=== PATIENT | male | born 1980 | race Caucasian/White ===

== ENCOUNTER 2018-01-19 13:06 | Emergency (ER) | payer OTHER ==
[2018-01-19] MEDS ORDERED: SULFAMETHOXAZOLE-TRIMETHOPRIM DS 800-160 MG TAB PO ONE (13:45)
[2018-01-19] MEDS ORDERED: MUPI2OIN TOPICAL (13:57)
[2018-01-19] MEDS ORDERED: BACT800T5 PO (13:57)
[2018-01-19 13:58] VITALS: BP 146/75; PULSE 98; RESP 20; TEMP 98; O2SAT 100
--- NOTE | 2018-01-19 14:06 | PD ---
HPI Chief Complaint: Alcohol/Drug Intoxication Time Seen by Provider: 13:33 Travel History International Travel<30 days: No Contact w/Intl Traveler<30days: No Traveled to known affect area: No History of Present Illness HPI 37-year-old male that presents to the ED for evaluation of possible substance abuse. Patient was brought here by police under a Ash act. Patient apparently was running around appearing to be "high" on a local hotel and he was escorted out of the hotel secondary to this. Per patient he has no history of substance abuse. On my exam she denies any homicidal suicidal ideation. Per patient he has no medical or psychiatric illness. He takes no medications. He does tell me that he had an injury to his right great toe and his toenail finally came off. Per patient is up and about a week ago when a piece of steel fell onto his toes. Per patient he has a burn to his left arm secondary to his work. This is been ongoing for again a week. He states that he is up-to-date with his vaccinations. He denies any urinary or bowel movement issues. No chest pain or shortness of breath. Patient is here mainly for possible intoxication. On my examination the patient is very jitterish and appears to be hard to keep in one place. Likely under the influence of a stimulant. PFSH Social History Tobacco Use: No Allergies-Medications (Allergen,Severity, Reaction): Coded Allergies: No Known Allergies (Unverified , 01/19/18) Reported Meds & Prescriptions Reported Meds & Active Scripts Active Mupirocin Topical (Mupirocin) 2 % Oint 1 Applic TOPICAL BID Bactrim DS (Sulfamethoxazole-Trimethoprim) 800-160 Mg Tab 1 Tab PO BID 10 Days Review of Systems ROS Limitations: Intoxication Except as stated in HPI: all other systems reviewed are Neg Physical Exam Exam Limitations: Intoxication Narrative GENERAL: SKIN: Warm and dry. Patient has a healing burn on his left forearm about 3 cm. Some yellow crusting noted. HEAD: Atraumatic. Normocephalic. EYES: Pupils equal and round. No scleral icterus. No injection or drainage. ENT: No nasal bleeding or discharge. Mucous membranes pink and moist. Tongue is midline. No uvula deviation. NECK: Trachea midline. No JVD. CARDIOVASCULAR: Regular rate and rhythm. No murmurs, S3, S4. RESPIRATORY: No accessory muscle use. Clear to auscultation. Breath sounds equal bilaterally. GASTROINTESTINAL: Abdomen soft, non-tender, nondistended. Hepatic and splenic margins not palpable. MUSCULOSKELETAL: Extremities without clubbing, cyanosis, or edema. No obvious deformities. Full range of motion of the upper and lower extremities bilaterally. 2+ pulses bilaterally. Full range of motion of all toes. Patient does have a nail avulsion to the right great toe as well as a bruise to the right second toe nail. NEUROLOGICAL: Awake and alert. No obvious cranial nerve deficits. Motor grossly within normal limits. Five out of 5 muscle strength in the arms and legs. Normal speech. PSYCHIATRIC: Appropriate mood and affect; insight and judgment normal. Data Data Orders Orders Drug Screen, Random Urine (01/19/18 13:33) Sulfamet-Trimeth Ds 800-160 Mg (Bactrim (01/19/18 13:45) MDM Medical Decision Making Medical Screen Exam Complete: Yes Emergency Medical Condition: Yes Medical Record Reviewed: Yes Differential Diagnosis Substance abuse versus polysubstance abuse versus altered mental status versus normal exam versus burn versus nail avulsion Narrative Course 37-year-old male presents to the ED for evaluation of possible substance abuse. Patient was brought here for evaluation of this. Patient on exam appears to be answering questions appropriately but does appears to be under the stimuli of likely a stimulant medication. Patient denies any drug use no suicidal or homicidal. At this time I will do a drug screen and patient will be treated with Bactrim for his burn on his left forearm. Mupirocin cream given as well. Patient was given first dose here. Patient will be observed until his sober enough to make own decisions and he will be discharged. ED nurse was made aware of plan. Patient is medically cleared. Diagnosis Primary Impression: Substance abuse Patient Instructions: General Instructions Additional Instructions: Take medications as prescribed. Follow-up with PCP. See ED worsening symptoms. Med/Other Pt SpecificInfo: Prescription(s) given Scripts Mupirocin Topical (Mupirocin Topical) 2 % Oint 1 APPLIC TOPICAL BID for Mgmt Bacterial Infection, #1 TUBE 0 Refills Prov: Ashley Solorzano MD 01/19/18 Sulfamethoxazole-Trimethoprim (Bactrim DS) 800-160 Mg Tab 1 TAB PO BID for Infection for 10 Days, #20 TAB 0 Refills Prov: Ashley Solorzano MD 01/19/18 Disposition: 01 DISCHARGE HOME Condition: Hitesh Anderson Jan 19, 2018 14:06
[2018-01-19 15:16] LABS: AUTOMATED NEUTROPHIL # 15.2 TH/MM3 (1.8-7.7); BASOPHIL % 0.1 % (0.0-2.0); HEMATOCRIT 35.9 % (39.0-51.0); LYMPH % 10.3 % (9.0-44.0); LYMPHOCYTE # 1.9 TH/MM3 (1.0-4.8); MEAN CELL VOLUME 84.1 FL (80.0-100.0); MEAN CORPUSCULAR HEMOGLOBIN 28.2 PG (27.0-34.0); MEAN CORPUSCULAR HGB CONC 33.5 % (32.0-36.0); MEAN PLATELET VOLUME 8.3 FL (7.0-11.0); MONO % 9.2 % (0.0-8.0); MONOCYTE # 1.7 TH/MM3 (0-0.9); NEUT % 80.4 % (16.0-70.0); PLATELET COUNT 311 TH/MM3 (150-450); RED BLOOD COUNT 4.27 MIL/MM3 (4.50-5.90); RED CELL DISTRIBUTION WIDTH 13.8 % (11.6-17.2); WHITE BLOOD COUNT 18.9 TH/MM3 (4.0-11.0)
[2018-01-19 15:35] LABS: ALBUMIN 3.8 GM/DL (3.4-5.0); ALT (GPT) 113 U/L (12-78); AST (GOT) 226 U/L (15-37); BICARBONATE 24.1 MEQ/L (21.0-32.0); BLOOD UREA NITROGEN 30 MG/DL (7-18); CALCIUM 8.2 MG/DL (8.5-10.1); CHLORIDE 98 MEQ/L (98-107); CREATININE 1.24 MG/DL (0.60-1.30); GLOMERULAR FILTRATION RATE 66 ML/MIN (>89); GLUCOSE,RANDOM 108 MG/DL (74-106); SODIUM (NA) 132 MEQ/L (136-145)
[2018-01-19 15:38] LABS: ALKALINE PHOSPHATASE 65 U/L (45-117); TOTAL BILIRUBIN ADULT 0.9 MG/DL (0.2-1.0)
--- NOTE | 2018-01-19 16:09 | PD ---
Data Data Last Documented VS Vital Signs Date Time Temp Pulse Resp B/P (MAP) Pulse Ox O2 Delivery O2 Flow Rate FiO2 01/19/18 13:58 98.0 98 20 146/75 (98) 100 Orders Orders Drug Screen, Random Urine (01/19/18 13:33) Sulfamet-Trimeth Ds 800-160 Mg (Bactrim (01/19/18 13:45) Complete Blood Count With Diff (01/19/18 14:06) Comprehensive Metabolic Panel (01/19/18 14:06) Labs Laboratory Tests Test 01/19/18 14:30 White Blood Count 18.9 TH/MM3 Red Blood Count 4.27 MIL/MM3 Hemoglobin 12.0 GM/DL Hematocrit 35.9 % Mean Corpuscular Volume 84.1 FL Mean Corpuscular Hemoglobin 28.2 PG Mean Corpuscular Hemoglobin Concent 33.5 % Red Cell Distribution Width 13.8 % Platelet Count 311 TH/MM3 Mean Platelet Volume 8.3 FL Neutrophils (%) (Auto) 80.4 % Lymphocytes (%) (Auto) 10.3 % Monocytes (%) (Auto) 9.2 % Eosinophils (%) (Auto) 0.0 % Basophils (%) (Auto) 0.1 % Neutrophils # (Auto) 15.2 TH/MM3 Lymphocytes # (Auto) 1.9 TH/MM3 Monocytes # (Auto) 1.7 TH/MM3 Eosinophils # (Auto) 0.0 TH/MM3 Basophils # (Auto) 0.0 TH/MM3 CBC Comment DIFF FINAL Differential Comment Blood Urea Nitrogen 30 MG/DL Creatinine 1.24 MG/DL Random Glucose 108 MG/DL Total Protein 7.0 GM/DL Albumin 3.8 GM/DL Calcium Level 8.2 MG/DL Alkaline Phosphatase 65 U/L Aspartate Amino Transf (AST/SGOT) 226 U/L Alanine Aminotransferase (ALT/SGPT) 113 U/L Total Bilirubin 0.9 MG/DL Sodium Level 132 MEQ/L Potassium Level 4.1 MEQ/L Chloride Level 98 MEQ/L Carbon Dioxide Level 24.1 MEQ/L Anion Gap 10 MEQ/L Estimat Glomerular Filtration Rate 66 ML/MIN [facility] Medical Record Reviewed: Yes Supervised Visit with [facility]: No Narrative Course Please see previous providers notes. I was asked to follow-up on lab work. His WBC count is 18.9. His AST is 226 and his ALT is 113. 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 He moved out of his brother's house yesterday and moved into a hotel. He was planning on traveling to [place] today. His brother told the nurse that he has been using [facility]. The patient is currently somewhat restless but he is awake and alert answering questions appropriately. His leukocytosis may be stress reaction. He has a burn on his left arm and he was written prescriptions for mupirocin and Bactrim. He has no other clinical evidence of infectious process. The patient' s elevated liver enzymes are consistent with his history of hepatitis C. The patient will be discharged when family members arrive to give him a ride home. Diagnosis Primary Impression: Substance abuse Patient Instructions: General Instructions Additional Instruction: Take medications as prescribed. Follow-up with PCP. See ED worsening symptoms. Med/Other Pt SpecificInfo: Prescription(s) given Scripts Mupirocin Topical (Mupirocin Topical) 2 % Oint 1 APPLIC TOPICAL BID for Mgmt Bacterial Infection, #1 TUBE 0 Refills Prov: Ashley Solorzano MD 01/19/18 Sulfamethoxazole-Trimethoprim (Bactrim DS) 800-160 Mg Tab 1 TAB PO BID for Infection for 10 Days, #20 TAB 0 Refills Prov: Ashley Solorzano MD 01/19/18 Disposition: 01 DISCHARGE HOME Condition: Stable Nitesh Proctor Jan 19, 2018 16:09
[2018-01-19 17:13] VITALS: BP 132/74; PULSE 70; RESP 18; O2SAT 99
[2018-01-19 18:30] VITALS: BP 124/70; PULSE 68; RESP 18; O2SAT 100
== END 2018-01-19 19:03 | disposition home or self-care (01) ==
LOC: NEDAMB 13:06
DX: F19.10 Other psychoactive substance abuse, uncomplicated (principal); S90.121A Contusion of right lesser toe(s) without damage to nail, initial encounter; W22.8XXA Striking against or struck by other objects, initial encounter
CPT/HCPCS: 80053; 85025; 99283

== ENCOUNTER 2018-01-21 08:19 | Inpatient (IN) | payer OTHER ==
[~2018-01-21] VITALS: Ht 180.3 cm; Wt 73.0 kg
[~2018-01-21 08:19] MED LIST: BACT800T5 PO; MUPI2OIN TOPICAL
[2018-01-21 08:23] VITALS: BP 130/64; PULSE 83; RESP 18; TEMP 97.9; O2SAT 98
[2018-01-21] MEDS ORDERED: VANCOMYCIN INJ 1,000 MG in SODIUM CHLOR 0.9% 250 ML INJ 250 ML IV STA (08:40)
--- NOTE | 2018-01-21 08:43 | PD ---
HPI Chief Complaint: Skin Problem Time Seen by Provider: 08:40 Travel History International Travel<30 days: No Contact w/Intl Traveler<30days: No Traveled to known affect area: No History of Present Illness HPI 37-year-old male patient with history of IV drug use, MRSA, presents to the ER today because he states that he has had infections on his skin on the left arm, left side of the body, and several spots, even on spots he has not been shooting up on. He denies any fevers or any other issues. He states that they are all getting red and swollen. Modifying Factors: None Associated Signs & Symptoms: Skin infections on the arm, trunk, legs Risk Factors: MRSA, IV drug use PFSH Social History Alcohol Use: No Tobacco Use: No Substance Use: No Allergies-Medications (Allergen,Severity, Reaction): Coded Allergies: No Known Allergies (Unverified , 01/21/18) Reported Meds & Prescriptions Reported Meds & Active Scripts Active No Active Prescriptions or Reported Medications Review of Systems Except as stated in HPI: all other systems reviewed are Neg Physical Exam Narrative GENERAL: Well-developed young male patient currently in mild distress. Awake and oriented 3. SKIN: Focused skin assessment warm/dry. There is notable pustule on the left arm with intense surrounding erythema going up the forearm. Tender to palpation. There is also a pustule on the left trunk with surrounding erythema as well. I am not palpating obvious underlying fluctuance. HEAD: Atraumatic. Normocephalic. EYES: Pupils equal and round. No scleral icterus. No injection or drainage. ENT: No nasal bleeding or discharge. Mucous membranes pink and moist. NECK: Trachea midline. No JVD. CARDIOVASCULAR: Regular rate and rhythm. No murmur appreciated. RESPIRATORY: No accessory muscle use. Clear to auscultation. Breath sounds equal bilaterally. GASTROINTESTINAL: Abdomen soft, non-tender, nondistended. Hepatic and splenic margins not palpable. MUSCULOSKELETAL: No obvious deformities. No clubbing. No cyanosis. No edema. NEUROLOGICAL: Awake and alert. No obvious cranial nerve deficits. Motor grossly within normal limits. Normal speech. PSYCHIATRIC: Appropriate mood and affect; insight and judgment normal. Data Data Last Documented VS Vital Signs Date Time Temp Pulse Resp B/P (MAP) Pulse Ox O2 Delivery O2 Flow Rate FiO2 01/21/18 12:06 83 20 131/75 (93) 98 Room Air 01/21/18 08:23 97.9 Orders Orders Sepsis Workup Initiated (01/21/18 ) Complete Blood Count With Diff (01/21/18 08:40) Comprehensive Metabolic Panel (01/21/18 08:40) Lactic Acid Sepsis Protocol (01/21/18 08:40) Blood Culture (01/21/18 08:40) Chest, Single Ap (01/21/18 08:40) Blood Glucose (01/21/18 08:40) Ecg Monitoring (01/21/18 08:40) Iv Access Insert/Monitor (01/21/18 08:40) Oximetry (01/21/18 08:40) Oxygen Administration (01/21/18 08:40) Vancomycin Inj (Vancomycin Inj) (01/21/18 08:40) [facility] ([facility] (01/21/18 10:15) Consult Infectious Disease (01/21/18 ) Case Management Consult (01/21/18 ) Asp:No Reaction To [place]/Vanc (Asp Crit (01/21/18 10:15) Asp: Does Not Meet Inpt Admit (Asp Crit: (01/21/18 10:15) Dalbavancin Inj (Dalvance Inj) (01/21/18 10:12) (Hub Use Only)Inp Phy Cons/Ref (01/21/18 ) Labs Laboratory Tests Test 01/21/18 09:00 White Blood Count 8.4 TH/MM3 Red Blood Count 4.65 MIL/MM3 Hemoglobin 13.2 GM/DL Hematocrit 38.9 % Mean Corpuscular Volume 83.7 FL Mean Corpuscular Hemoglobin 28.3 PG Mean Corpuscular Hemoglobin Concent 33.8 % Red Cell Distribution Width 14.4 % Platelet Count 315 TH/MM3 Mean Platelet Volume 7.9 FL Neutrophils (%) (Auto) 73.7 % Lymphocytes (%) (Auto) 14.4 % Monocytes (%) (Auto) 11.0 % Eosinophils (%) (Auto) 0.5 % Basophils (%) (Auto) 0.4 % Neutrophils # (Auto) 6.2 TH/MM3 Lymphocytes # (Auto) 1.2 TH/MM3 Monocytes # (Auto) 0.9 TH/MM3 Eosinophils # (Auto) 0.0 TH/MM3 Basophils # (Auto) 0.0 TH/MM3 CBC Comment DIFF FINAL Differential Comment Blood Urea Nitrogen 5 MG/DL Creatinine 0.65 MG/DL Random Glucose 100 MG/DL Total Protein 6.9 GM/DL Albumin 3.2 GM/DL Calcium Level 8.6 MG/DL Alkaline Phosphatase 56 U/L Aspartate Amino Transf (AST/SGOT) 129 U/L Alanine Aminotransferase (ALT/SGPT) 94 U/L Total Bilirubin 0.7 MG/DL Sodium Level 138 MEQ/L Potassium Level 3.5 MEQ/L Chloride Level 104 MEQ/L Carbon Dioxide Level 28.9 MEQ/L Anion Gap 5 MEQ/L Estimat Glomerular Filtration Rate 139 ML/MIN Lactic Acid Level 1.1 mmol/L MDM Medical Decision Making Medical Screen Exam Complete: Yes Emergency Medical Condition: Yes Medical Record Reviewed: Yes Interpretation(s) Laboratory Tests Test 01/21/18 09:00 Hematocrit 38.9 % (39.0-51.0) Neutrophils (%) (Auto) 73.7 % (16.0-70.0) Monocytes (%) (Auto) 11.0 % (0.0-8.0) Blood Urea Nitrogen 5 MG/DL (7-18) Albumin 3.2 GM/DL (3.4-5.0) Aspartate Amino Transf (AST/SGOT) 129 U/L (15-37) Alanine Aminotransferase (ALT/SGPT) 94 U/L (12-78) Differential Diagnosis Skin infections: Cellulitis versus abscess versus sepsis versus endocarditis Narrative Course This appears to be mostly cellulitis, I do not see signs of obvious abscess at this time. IV antibiotics were given in the ER after cultures were drawn. At this point, I have discussed the case briefly with Dr. Diana of [place], but because bank had already been given and the fact that the patient states that he does not have the means to go back and forth for visits, he does not make a good candidate for [facility]. Case is discussed with Dr. Kyle Keyes for admission for IV antibiotics at this point and further follow-up planning will need to be done with case management. Diagnosis Primary Impression: Left arm cellulitis Admitting Information Admitting Physician Requests: Admit Scripts No Active Prescriptions or Reported Meds Cole Partida MD Jan 21, 2018 08:43
[2018-01-21 08:50] VITALS: O2SAT 100
--- NOTE | 2018-01-21 09:12 | RADRPT ---
EXAM DATE/TIME: 01/21/2018 08:48 [facility] COMPARISON: No previous studies available for comparison. INDICATIONS : Chest pain when breathing. Infection. MEDICAL HISTORY : MRSA. SURGICAL HISTORY : None. ENCOUNTER: Initial ACUITY: 1 day PAIN SCORE: 2/10 LOCATION: Bilateral chest FINDINGS: A single view of the chest demonstrates the lungs to be symmetrically aerated without evidence of mas s, infiltrate or effusion. The cardiomediastinal contours are unremarkable. Osseous structures are intact. CONCLUSION: No acute disease. Carlos Ventura MD on January 21, 2018 at 9:10 Board Certified Radiologist. This report was verified electronically.
[2018-01-21 09:20] LABS: AUTOMATED NEUTROPHIL # 6.2 TH/MM3 (1.8-7.7); BASOPHIL % 0.4 % (0.0-2.0); EOSINOPHIL % 0.5 % (0.0-4.0); HEMATOCRIT 38.9 % (39.0-51.0); HEMOGLOBIN 13.2 GM/DL (13.0-17.0); LYMPH % 14.4 % (9.0-44.0); LYMPHOCYTE # 1.2 TH/MM3 (1.0-4.8); MEAN CELL VOLUME 83.7 FL (80.0-100.0); MEAN CORPUSCULAR HEMOGLOBIN 28.3 PG (27.0-34.0); MEAN CORPUSCULAR HGB CONC 33.8 % (32.0-36.0); MEAN PLATELET VOLUME 7.9 FL (7.0-11.0); MONOCYTE # 0.9 TH/MM3 (0-0.9); NEUT % 73.7 % (16.0-70.0); PLATELET COUNT 315 TH/MM3 (150-450); RED BLOOD COUNT 4.65 MIL/MM3 (4.50-5.90); RED CELL DISTRIBUTION WIDTH 14.4 % (11.6-17.2); WHITE BLOOD COUNT 8.4 TH/MM3 (4.0-11.0)
[2018-01-21 10:03] LABS: ALBUMIN 3.2 GM/DL (3.4-5.0); ALKALINE PHOSPHATASE 56 U/L (45-117); ALT (GPT) 94 U/L (12-78); AST (GOT) 129 U/L (15-37); BICARBONATE 28.9 MEQ/L (21.0-32.0); BLOOD UREA NITROGEN 5 MG/DL (7-18); CALCIUM 8.6 MG/DL (8.5-10.1); CHLORIDE 104 MEQ/L (98-107); CREATININE 0.65 MG/DL (0.60-1.30); GLOMERULAR FILTRATION RATE 139 ML/MIN (>89); GLUCOSE,RANDOM 100 MG/DL (74-106); SODIUM (NA) 138 MEQ/L (136-145); TOTAL BILIRUBIN ADULT 0.7 MG/DL (0.2-1.0); TOTAL PROTEIN 6.9 GM/DL (6.4-8.2)
[2018-01-21] MEDS ORDERED: DALBAVANCIN INJ 1,500 MG in DEXTROSE 5% IN WATE 500 ML INJ 500 ML IV STA ×2 (10:12)
[2018-01-21] MEDS ORDERED: MISCELLANEOUS PHARMACY INFORMATION XX ONE (10:15)
[2018-01-21] MEDS ORDERED: ASP: Does not meet inpatient admission criteria OTHER ONE (10:15)
[2018-01-21] MEDS ORDERED: ASP: No known hypersensitivity to Vanco, Telavancin, Dalbavancin OTHER ONE (10:15)
[2018-01-21 12:06] VITALS: BP 131/75; PULSE 83; RESP 20; O2SAT 98
[2018-01-21] MEDS ORDERED: BISACODYL 10 MG SUPP RECTAL PRN (13:00)
[2018-01-21] MEDS ORDERED: SENNOSIDES 8.6 MG TAB PO PRN (13:00)
[2018-01-21] MEDS ORDERED: ONDANSETRON HCL 4 MG/2 ML VIAL IVP PRN (13:00)
[2018-01-21] MEDS ORDERED: SODIUM CHLORIDE 0.9% FLUSH 10 ML FLUSH IV FLUSH PRN (13:00)
[2018-01-21] MEDS ORDERED: MAGNESIUM HYDROXIDE SUSP 30 ML CUP PO PRN (13:00)
[2018-01-21] MEDS ORDERED: NALOXONE HCL 0.4 MG/ML AMP IV PUSH PRN (13:00)
[2018-01-21] MEDS ORDERED: ACETAMINOPHEN 325 MG TAB PO PRN (13:00)
[2018-01-21] MEDS ORDERED: LACTULOSE SYRUP 20 GM/30 ML CUP PO PRN (13:00)
--- NOTE | 2018-01-21 13:22 | PD.PN.STU ---
Subjective Remarks The patient is a 37 y/o male with a hx of MRSA skin infection and IVDU who presents complaining of a rash. He said that 4 days ago he noticed a red spot on his arm and over the past 4 days more have popped up and they have started to hurt a lot. He says that the spots are causing severe pain and they seem to be increasing in number to him. He says there are no aggravating or alleviating factors and he has never had anything like this before. The pustules he has have not drained to his knowledge. He has not been around anyone with a similar problem that he knows of. He last used IV meth 4 days ago in a hotel room and has spent no time out in the [place]. He says that he has body aches and chills that started about 3 days ago. He notes some SOB and chest tightness that started yesterday and he attributes to feeling very anxious. He denies fevers, diarrhea, constipation, abdominal pain, vision changes, or palpitations. PMH- IV substance abuse Social Hx: IV meth for 5 years, last use was 4 days ago. Smoke 1/2 pack of cigarettes a day. Denies alcohol use. Home medications: none Surgical hx: none Objective Vitals Vital Signs Date Time Temp Pulse Resp B/P (MAP) Pulse Ox O2 Delivery O2 Flow Rate FiO2 01/21/18 12:06 83 20 131/75 (93) 98 Room Air 01/21/18 08:50 100 Room Air 01/21/18 08:50 100 Room Air 01/21/18 08:44 20 01/21/18 08:23 97.9 83 18 130/64 (86) 98 Result Diagram: 01/21/18 0900 01/21/18 0900 Other Results Laboratory Tests Test 01/21/18 09:00 White Blood Count 8.4 TH/MM3 Red Blood Count 4.65 MIL/MM3 Hemoglobin 13.2 GM/DL Hematocrit 38.9 % Mean Corpuscular Volume 83.7 FL Mean Corpuscular Hemoglobin 28.3 PG Mean Corpuscular Hemoglobin Concent 33.8 % Red Cell Distribution Width 14.4 % Platelet Count 315 TH/MM3 Mean Platelet Volume 7.9 FL Neutrophils (%) (Auto) 73.7 % Lymphocytes (%) (Auto) 14.4 % Monocytes (%) (Auto) 11.0 % Eosinophils (%) (Auto) 0.5 % Basophils (%) (Auto) 0.4 % Neutrophils # (Auto) 6.2 TH/MM3 Lymphocytes # (Auto) 1.2 TH/MM3 Monocytes # (Auto) 0.9 TH/MM3 Eosinophils # (Auto) 0.0 TH/MM3 Basophils # (Auto) 0.0 TH/MM3 CBC Comment DIFF FINAL Differential Comment Blood Urea Nitrogen 5 MG/DL Creatinine 0.65 MG/DL Random Glucose 100 MG/DL Total Protein 6.9 GM/DL Albumin 3.2 GM/DL Calcium Level 8.6 MG/DL Alkaline Phosphatase 56 U/L Aspartate Amino Transf (AST/SGOT) 129 U/L Alanine Aminotransferase (ALT/SGPT) 94 U/L Total Bilirubin 0.7 MG/DL Sodium Level 138 MEQ/L Potassium Level 3.5 MEQ/L Chloride Level 104 MEQ/L Carbon Dioxide Level 28.9 MEQ/L Anion Gap 5 MEQ/L Estimat Glomerular Filtration Rate 139 ML/MIN Lactic Acid Level 1.1 mmol/L Imaging Last Impressions Chest X-Ray 01/21/18 0840 Signed Impressions: Service Date/Time: Sunday, January 21, 2018 08:48 - CONCLUSION: No acute disease. Carlos Ventura MD Objective Remarks GENERAL: Well-nourished, well-developed patient who appears very anxious in the bed. SKIN: Warm and dry. Multiple pustules on his left arm, left thigh, left leg, and right leg. All of them have surrounding erythema and some have a white center and some have a necrotic center. Appears diaphoretic. EYES: No scleral icterus. No injection or drainage. CARDIOVASCULAR: Regular rate and rhythm with a 2/6 systolic murmur heard in the left 5th intercostal space. RESPIRATORY: Breath sounds equal bilaterally. No accessory muscle use. GASTROINTESTINAL: Abdomen soft, non-tender, nondistended. EXTREMITIES: No cyanosis, or edema. Left inguinal lymphadenopathy. NEUROLOGICAL: Awake, alert, and oriented x 3. Non-focal. Medications and IVs Current Medications Medications (Trade) Dose Ordered Sig/Marielos Route PRN Reason Start Time Stop Time Status Last Admin Dose Admin Sodium Chloride (NS Flush) 2 ml UNSCH PRN IV FLUSH FLUSH AFTER USING IV ACCESS 01/21/18 13:00 UNV Sodium Chloride (NS Flush) 2 ml BID IV FLUSH 01/21/18 21:00 UNV Acetaminophen (Tylenol) 650 mg Q4H PRN PO TEMP > 100.4 01/21/18 13:00 UNV Ondansetron HCl (Zofran Inj) 4 mg Q6H PRN IVP NAUSEA OR VOMITING 01/21/18 13:00 UNV Heparin Sodium (Porcine) (Heparin Inj) 5,000 units Q12H SQ 01/21/18 13:00 UNV Naloxone HCl (Narcan Inj) 0.4 mg UNSCH PRN IV PUSH SEE LABEL COMMENTS 01/21/18 13:00 UNV Magnesium Hydroxide (Milk Of Magnesia Liq) 30 ml Q12H PRN PO Mild constipation 01/21/18 13:00 UNV Sennosides (Senokot) 17.2 mg Q12H PRN PO Moderate constipation 01/21/18 13:00 UNV Bisacodyl (Dulcolax Supp) 10 mg DAILY PRN RECTAL SEVERE CONSITIPATION 01/21/18 13:00 UNV Lactulose (Lactulose Liq) 30 ml DAILY PRN PO SEVERE CONSITIPATION 01/21/18 13:00 UNV A/P Assessment and Plan This is a 37 y/o male with a hx of IV drug abuse presenting with a rash for 4 days that has been progressively getting worse. It started as a single pustule but now he has multiple on his left extremities along with lymphadenopathy and a mitral regurg murmur. He has a hx of MRSA skin infection so this is likely to also be MRSA. He was afebrile on arrival, has no leukocytosis, and normal chest x-ray. His SOB and chest tightness is likely secondary to his anxiety as he appears very restless and anxious in the room. If blood cultures are positive we should get an Echo to evaluate of BE. Labs also show transaminitis. 1. Skin Infection -patient has some type of cellulitis process and a hx of MRSA -Consult ID - appreciate the recommendations -Patient given 1g Vancomycin IV to cover MRSA -Tylenol PRN for fever -blood culture drawn prior to antibiotics and are pending -lactate was normal- 1.1 -Get 2D echo if blood cultures are positive 2.Elevated AST and ALT -Trend CMP - order hepatitis screening 3. Prophylaxis -5000units of heparin subcutaneous Q 12 hours -Senokot, Dulcolax, and lactulose for bowel regimen Efrain Almaraz M3 Jan 21, 2018 13:22
[2018-01-21 14:34] VITALS: BP 130/76; PULSE 84; RESP 16; TEMP 99.1; O2SAT 99
--- NOTE | 2018-01-21 15:31 | HHI.HP ---
[facility] Service [facility] Primary Care Physician No Primary Care Physician Admission Diagnosis IV drug use/cellulitis/MRSA Diagnoses: Travel History International Travel<30 Days: No Contact w/Intl Traveler <30 Da: No Traveled to Known Affected Are: No Past Family Social History Allergies: Coded Allergies: No Known Allergies (Unverified , 01/21/18) Physical Exam Vital Signs Vital Signs Date Time Temp Pulse Resp B/P (MAP) Pulse Ox O2 Delivery O2 Flow Rate FiO2 01/21/18 14:34 99.1 84 16 130/76 (94) 99 01/21/18 14:32 01/21/18 12:06 83 20 131/75 (93) 98 Room Air 01/21/18 08:50 100 Room Air 01/21/18 08:50 100 Room Air 01/21/18 08:44 20 01/21/18 08:23 97.9 83 18 130/64 (86) 98 Physical Exam GENERAL: This is a well-nourished, well-developed patient, in no apparent distress. SKIN: No rashes, ecchymoses or lesions. Cool and dry. HEAD: Atraumatic. Normocephalic. No temporal or scalp tenderness. EYES: Pupils equal round and reactive. Extraocular motions intact. No scleral icterus. No injection or drainage. ENT: Nose without bleeding, purulent drainage or septal hematoma. Throat without erythema, tonsillar hypertrophy or exudate. Uvula midline. Airway patent. NECK: Trachea midline. No JVD or lymphadenopathy. Supple, nontender, no meningeal signs. CARDIOVASCULAR: Regular rate and rhythm without murmurs, gallops, or rubs. RESPIRATORY: Clear to auscultation. Breath sounds equal bilaterally. No wheezes , rales, or rhonchi. GASTROINTESTINAL: Abdomen soft, non-tender, nondistended. No hepato-splenomegaly , or palpable masses. No guarding. MUSCULOSKELETAL: Extremities without clubbing, cyanosis, or edema. No joint tenderness, effusion, or edema noted. No calf tenderness. Negative Homans sign bilaterally. NEUROLOGICAL: Awake and alert. Cranial nerves II through XII intact. Motor and sensory grossly within normal limits. Five out of 5 muscle strength in all muscle groups. Normal speech. Laboratory Laboratory Tests Test 01/21/18 09:00 White Blood Count 8.4 Red Blood Count 4.65 Hemoglobin 13.2 Hematocrit 38.9 Mean Corpuscular Volume 83.7 Mean Corpuscular Hemoglobin 28.3 Mean Corpuscular Hemoglobin Concent 33.8 Red Cell Distribution Width 14.4 Platelet Count 315 Mean Platelet Volume 7.9 Neutrophils (%) (Auto) 73.7 Lymphocytes (%) (Auto) 14.4 Monocytes (%) (Auto) 11.0 Eosinophils (%) (Auto) 0.5 Basophils (%) (Auto) 0.4 Neutrophils # (Auto) 6.2 Lymphocytes # (Auto) 1.2 Monocytes # (Auto) 0.9 Eosinophils # (Auto) 0.0 Basophils # (Auto) 0.0 CBC Comment DIFF FINAL Differential Comment Blood Urea Nitrogen 5 Creatinine 0.65 Random Glucose 100 Total Protein 6.9 Albumin 3.2 Calcium Level 8.6 Alkaline Phosphatase 56 Aspartate Amino Transf (AST/SGOT) 129 Alanine Aminotransferase (ALT/SGPT) 94 Total Bilirubin 0.7 Sodium Level 138 Potassium Level 3.5 Chloride Level 104 Carbon Dioxide Level 28.9 Anion Gap 5 Estimat Glomerular Filtration Rate 139 Lactic Acid Level 1.1 Date/Time Source Procedure Growth Status 01/21/18 09:05 Blood Peripheral Aerobic Blood Culture Pending Received 01/21/18 09:05 Blood Peripheral Anaerobic Blood Culture Pending Received Result Diagram: 01/21/18 0900 01/21/18 09 Caprini VTE Risk Assessment Caprini Risk Assessment Model Point Value = 1 Point Value = 2 Point Value = 3 Point Value = 5 Age 41-60 Minor surgery BMI > 25 kg/m2 Swollen legs Varicose veins or History of unexplained or recurrent spontaneous Oral contraceptives or hormone replacement Sepsis (< 1 month) Serious lung disease, including pneumonia (< 1 month) Abnormal pulmonary function Acute myocardial infarction Congestive heart failure (< 1 month) History of inflammatory bowel disease Medical patient at bed rest Age 61-74 Arthroscopic surgery Major open surgery (> 45 min) Laparoscopic surgery (> 45 min) Malignancy Confined to bed (> 72 hours) Immobilizing plaster cast Central venous access Age >= 75 History of VTE Family history of VTE Factor V Leiden Prothrombin [id number] Lupus anticoagulant Anticardiolipin antibodies Elevated serum homocysteine Heparin-induced thrombocytopenia Other congenital or acquired thrombophilia Stroke (< 1 month) Elective arthroplasty Hip, pelvis, or leg fracture Acute spinal cord injury (< 1 month) Prophylaxis Regimen Total Risk Factor Score Risk Level Prophylaxis Regimen 0-1 Low Early ambulation 2 Moderate Order ONE of the following: *Sequential Compression Device (SCD) *Heparin 5000 units SQ BID 3-4 Higher Order ONE of the following medications: *Heparin 5000 units SQ TID *Enoxaparin/Lovenox 40 mg SQ daily (WT < 150 kg, CrCl > 30 mL/min) *Enoxaparin/Lovenox 30 mg SQ daily (WT < 150 kg, CrCl > 10-29 mL/min) *Enoxaparin/Lovenox 30 mg SQ BID (WT < 150 kg, CrCl > 30 mL/min) AND/OR *Sequential Compression Device (SCD) 5 or more Highest Order ONE of the following medications: *Heparin 5000 units SQ TID (Preferred with Epidurals) *Enoxaparin/Lovenox 40 mg SQ daily (WT < 150 kg, CrCl > 30 mL/min) *Enoxaparin/Lovenox 30 mg SQ daily (WT < 150 kg, CrCl > 10-29 mL/min) *Enoxaparin/Lovenox 30 mg SQ BID (WT < 150 kg, CrCl > 30 mL/min) AND *Sequential Compression Device (SCD) Radha Domingo MD Jan 21, 2018 15:31
--- NOTE | 2018-01-21 15:34 | HHI.HP ---
HPI Service [facility] Primary Care Physician No Primary Care Physician Admission Diagnosis IV drug use/cellulitis/MRSA Diagnoses: Chief Complaint: Multiple skin infections. IVDU Travel History International Travel<30 Days: No Contact w/Intl Traveler <30 Da: No Traveled to Known Affected Are: No History of Present Illness 37 Y/O male with with history of IVDU, multiple MRSA skin infection presented to the emergency room with multiple skin infections that started about 5 days ago. The patient was seen in the emergency room a couple of days ago and was prescribed antibiotics. He is a current Methamphetamine user. He notes the lesions involve his arm and legs. Has been getting worse over the past couple of days. Become pustules and enlarging in size. He denies fevers. He reports feeling very anxious currently Review of Systems Constitutional: DENIES: Fever Integumentary: COMPLAINS OF: Rash Psychiatric: COMPLAINS OF: Anxiety Except as stated in HPI: all other systems reviewed are Neg Past Family Social History Past Medical History Tobacco abuse Methamphetamines dependence, IVDU Past Surgical History None Reported Medications Reported Meds & Active Scripts Active No Active Prescriptions or Reported Medications Allergies: Coded Allergies: No Known Allergies (Unverified , 01/21/18) Family History Reviewed and is noncontributory Social History + for tobacco abuse and IVDU Physical Exam Vital Signs Vital Signs Date Time Temp Pulse Resp B/P (MAP) Pulse Ox O2 Delivery O2 Flow Rate FiO2 01/21/18 14:34 99.1 84 16 130/76 (94) 99 01/21/18 14:32 01/21/18 12:06 83 20 131/75 (93) 98 Room Air 01/21/18 08:50 100 Room Air 01/21/18 08:50 100 Room Air 01/21/18 08:44 20 01/21/18 08:23 97.9 83 18 130/64 (86) 98 Physical Exam GENERAL: This is a well-nourished, well-developed patient, in no apparent distress. SKIN: Multiple small abscess involving the leg of varying sizes. He also has a few similar lesion on the left forearm. Left inguinal abscess/lymphadenopathy. All very tender to palpation. HEAD: Atraumatic. Normocephalic. No temporal or scalp tenderness. EYES: Pupils equal round and reactive. Extraocular motions intact. No scleral icterus. No injection or drainage. ENT: Nose without bleeding, purulent drainage or septal hematoma. Throat without erythema, tonsillar hypertrophy or exudate. Uvula midline. Airway patent. NECK: Trachea midline. No JVD or lymphadenopathy. Supple, nontender, no meningeal signs. CARDIOVASCULAR: Normal rate and regular rhythm. 2/6 PIPPA murmur RESPIRATORY: Clear to auscultation. Breath sounds equal bilaterally. No wheezes , rales, or rhonchi. GASTROINTESTINAL: Abdomen soft, non-tender, nondistended. No hepato-splenomegaly , or palpable masses. No guarding. MUSCULOSKELETAL: Extremities without cyanosis, or edema. NEUROLOGICAL: Awake and alert. Cranial nerves II through XII intact. Motor and sensory grossly within normal limits. Five out of 5 muscle strength in all muscle groups. Normal speech. Laboratory Laboratory Tests Test 01/21/18 09:00 White Blood Count 8.4 Red Blood Count 4.65 Hemoglobin 13.2 Hematocrit 38.9 Mean Corpuscular Volume 83.7 Mean Corpuscular Hemoglobin 28.3 Mean Corpuscular Hemoglobin Concent 33.8 Red Cell Distribution Width 14.4 Platelet Count 315 Mean Platelet Volume 7.9 Neutrophils (%) (Auto) 73.7 Lymphocytes (%) (Auto) 14.4 Monocytes (%) (Auto) 11.0 Eosinophils (%) (Auto) 0.5 Basophils (%) (Auto) 0.4 Neutrophils # (Auto) 6.2 Lymphocytes # (Auto) 1.2 Monocytes # (Auto) 0.9 Eosinophils # (Auto) 0.0 Basophils # (Auto) 0.0 CBC Comment DIFF FINAL Differential Comment Blood Urea Nitrogen 5 Creatinine 0.65 Random Glucose 100 Total Protein 6.9 Albumin 3.2 Calcium Level 8.6 Alkaline Phosphatase 56 Aspartate Amino Transf (AST/SGOT) 129 Alanine Aminotransferase (ALT/SGPT) 94 Total Bilirubin 0.7 Sodium Level 138 Potassium Level 3.5 Chloride Level 104 Carbon Dioxide Level 28.9 Anion Gap 5 Estimat Glomerular Filtration Rate 139 Lactic Acid Level 1.1 Date/Time Source Procedure Growth Status 01/21/18 09:05 Blood Peripheral Aerobic Blood Culture Pending Received 01/21/18 09:05 Blood Peripheral Anaerobic Blood Culture Pending Received Result Diagram: 01/21/1889901/21/18 0900 Imaging Last Impressions Chest X-Ray 01/21/18 0840 Signed Impressions: Service Date/Time: Sunday, January 21, 2018 08:48 - CONCLUSION: No acute disease. MD Zhanna Villafana VTE Risk Assessment Zhanna VTE Risk Assessment: No/Low Risk (score <= 1) Shaunrini Risk Assessment Model Point Value = 1 Point Value = 2 Point Value = 3 Point Value = 5 Age 41-60 Minor surgery BMI > 25 kg/m2 Swollen legs Varicose veins or History of unexplained or recurrent spontaneous Oral contraceptives or hormone replacement Sepsis (< 1 month) Serious lung disease, including pneumonia (< 1 month) Abnormal pulmonary function Acute myocardial infarction Congestive heart failure (< 1 month) History of inflammatory bowel disease Medical patient at bed rest Age 61-74 Arthroscopic surgery Major open surgery (> 45 min) Laparoscopic surgery (> 45 min) Malignancy Confined to bed (> 72 hours) Immobilizing plaster cast Central venous access Age >= 75 History of VTE Family history of VTE Factor V Leiden Prothrombin [id number] Lupus anticoagulant Anticardiolipin antibodies Elevated serum homocysteine Heparin-induced thrombocytopenia Other congenital or acquired thrombophilia Stroke (< 1 month) Elective arthroplasty Hip, pelvis, or leg fracture Acute spinal cord injury (< 1 month) Prophylaxis Regimen Total Risk Factor Score Risk Level Prophylaxis Regimen 0-1 Low Early ambulation 2 Moderate Order ONE of the following: *Sequential Compression Device (SCD) *Heparin 5000 units SQ BID 3-4 Higher Order ONE of the following medications: *Heparin 5000 units SQ TID *Enoxaparin/Lovenox 40 mg SQ daily (WT < 150 kg, CrCl > 30 mL/min) *Enoxaparin/Lovenox 30 mg SQ daily (WT < 150 kg, CrCl > 10-29 mL/min) *Enoxaparin/Lovenox 30 mg SQ BID (WT < 150 kg, CrCl > 30 mL/min) AND/OR *Sequential Compression Device (SCD) 5 or more Highest Order ONE of the following medications: *Heparin 5000 units SQ TID (Preferred with Epidurals) *Enoxaparin/Lovenox 40 mg SQ daily (WT < 150 kg, CrCl > 30 mL/min) *Enoxaparin/Lovenox 30 mg SQ daily (WT < 150 kg, CrCl > 10-29 mL/min) *Enoxaparin/Lovenox 30 mg SQ BID (WT < 150 kg, CrCl > 30 mL/min) AND *Sequential Compression Device (SCD) Assessment and Plan Assessment and Plan 37 Y/O male IVDU admitted with Extensive cellulitis and pustules/small abscess involving arm, legs, groin: - Start Vanc and Rocephin. - Consult ID - Blood cultures pending. Anxiety/Early withdrawal: - Ativan PRN. Elevated LFTs: - Check hepatitis panel. Discussed Condition With Dr. Rodarte Physician Certification 2 Midnight Certification Type: Admission for Inpatient Services Order for Inpatient Services The services are ordered in accordance with Medicare regulations or non- Medicare payer requirements, as applicable. In the case of services not specified as inpatient-only, they are appropriately provided as inpatient services in accordance with the 2-midnight benchmark. Estimated LOS (days): 3 days is the estimated time the patient will need to remain in the hospital, assuming treatment plan goals are met and no additional complications. Post-Hospital Plan: Home Radha Domingo MD Jan 21, 2018 15:34
[2018-01-21] MEDS ORDERED: Vancomycin Consult Pharmacy 1 EA OTHER SCH (15:45)
[2018-01-21] MEDS: LORazepam 1 MG TAB PO PRN ×2 (16:02→21:56)
[2018-01-21] MEDS: HEPARIN SODIUM - SQ 10,000 UNITS/ML VIAL SQ SCH (16:06)
[2018-01-21] MEDS ORDERED: cefTRIAXone INJ 1,000 MG in SODIUM CHLORIDE 0.9% INJ 100 ML IV SCH (17:00)
--- NOTE | 2018-01-21 17:09 | PD.ID.CON ---
History of Present Illness Consult Requested By Primary Care Physician No Primary Care Physician Diagnoses: History of Present Illness 37 M with active IVDU presented witmultiple tender skin lesions with most prominent on the L abdome, L groin area and L forearm No fevers No leukocytosis H/o MRSA Review of Systems Except as stated in HPI: all other systems reviewed are Neg Past Family Social History Allergies: Coded Allergies: No Known Allergies (Unverified , 01/21/18) Past Medical History HCV IVDU Active Ordered Medications Medications where reviewed in EMR Antibiotics Include: vanco CFTX Physical Exam Vital Signs Vital Signs Date Time Temp Pulse Resp B/P (MAP) Pulse Ox O2 Delivery O2 Flow Rate FiO2 01/21/18 14:34 99.1 84 16 130/76 (94) 99 01/21/18 14:32 01/21/18 12:06 83 20 131/75 (93) 98 Room Air 01/21/18 08:50 100 Room Air 01/21/18 08:50 100 Room Air 01/21/18 08:44 20 01/21/18 08:23 97.9 83 18 130/64 (86) 98 Physical Exam CONSTITUTIONAL/GENERAL: This is an adequately nourished patient, in no apparent distress. TUBES/LINES/DRAINS: SKIN: multiple skin abscesses, abdominal wall, L forearm, L thigh i different stages Some fluctuant very tender biggest one around 2.5 cm on the L forearm, also on abdominal wall and L thigh HEAD: Atraumatic. Normocephalic. EYES: Pupils equal and round and reactive. Extraocular motions intact. No scleral icterus. No injection or drainage. Fundi not examined. ENT: Hearing grossly normal. Nose without bleeding or purulent drainage. Throat without visible erythema, exudates, masses, or lesions. NECK: Trachea midline. Supple, nontender. No palpable thyroid enlargement or nodularity. CARDIOVASCULAR: Regular rate and rhythm without murmurs, gallops, or rubs. No JVD. Peripheral pulses symmetric. RESPIRATORY/CHEST: Symmetric, unlabored respirations. Clear to auscultation. Breath sounds equal bilaterally. No wheezes, rales, or rhonchi. GASTROINTESTINAL: Abdomen soft, non-tender, nondistended. No hepato-splenomegaly , or palpable masses. No guarding. Bowel sounds present. GENITOURINARY: Without palpable bladder distension. Perrin catheter in place. MUSCULOSKELETAL: Extremities without clubbing, cyanosis, or edema. No joint tenderness or effusion noted. No calf tenderness. No mottling or clubbing. LYMPHATICS: No palpable cervical or supraclavicular adenopathy. NEUROLOGICAL: Awake and alert. Motor and sensory grossly within normal limits. Follows commands. Cognitively sharp. Moves all extremities. PSYCHIATRIC: No obvious anxiety/depression. no apparent hallucinations or other psychotic thought process. Laboratory Laboratory Tests Test 01/21/18 09:00 White Blood Count 8.4 Red Blood Count 4.65 Hemoglobin 13.2 Hematocrit 38.9 Mean Corpuscular Volume 83.7 Mean Corpuscular Hemoglobin 28.3 Mean Corpuscular Hemoglobin Concent 33.8 Red Cell Distribution Width 14.4 Platelet Count 315 Mean Platelet Volume 7.9 Neutrophils (%) (Auto) 73.7 Lymphocytes (%) (Auto) 14.4 Monocytes (%) (Auto) 11.0 Eosinophils (%) (Auto) 0.5 Basophils (%) (Auto) 0.4 Neutrophils # (Auto) 6.2 Lymphocytes # (Auto) 1.2 Monocytes # (Auto) 0.9 Eosinophils # (Auto) 0.0 Basophils # (Auto) 0.0 CBC Comment DIFF FINAL Differential Comment Blood Urea Nitrogen 5 Creatinine 0.65 Random Glucose 100 Total Protein 6.9 Albumin 3.2 Calcium Level 8.6 Alkaline Phosphatase 56 Aspartate Amino Transf (AST/SGOT) 129 Alanine Aminotransferase (ALT/SGPT) 94 Total Bilirubin 0.7 Sodium Level 138 Potassium Level 3.5 Chloride Level 104 Carbon Dioxide Level 28.9 Anion Gap 5 Estimat Glomerular Filtration Rate 139 Lactic Acid Level 1.1 Date/Time Source Procedure Growth Status 01/21/18 09:05 Blood Peripheral Aerobic Blood Culture Pending Received 01/21/18 09:05 Blood Peripheral Anaerobic Blood Culture Pending Received Result Diagram: 01/21/18 0900 01/21/18 09 Assessment and Plan Assessment and Plan A: mulriple skin abscesses Plan: will ask gen surg to see the pt for I+D vancomycin Irene Reyna MD Jan 21, 2018 17:09
--- NOTE | 2018-01-21 17:15 | HHI.PR ---
Addendum to Inpatient Note Additional Information seen around 4 pm- full note to follow IVDU M co multiple skin abscesses, abdominal wall, L forearm, L thigh very tender + subjective fever T max 99.1 WBC wnl On exam: multiple small skin abscesses with the biggest one around 2.5 cm on the L forearm, also on abdominal wall and L thigh O/w unremakable exam Plan: will ask gen surg to see the pt for I+D vancomycin Irene Diana MD Jan 21, 2018 17:15
[2018-01-21 18:18] LABS: ALBUMIN 3.3 GM/DL (3.4-5.0); DIRECT BILIRUBIN ADULT 0.2 MG/DL (0.0-0.2)
[2018-01-21 18:20] LABS: INDIRECT BILIRUBIN 0.5 MG/DL (0.0-0.8); TOTAL BILIRUBIN ADULT 0.7 MG/DL (0.2-1.0)
--- NOTE | 2018-01-21 19:28 | MB ---
cc: Efrain Leong MD DATE: 01/21/2018 REASON FOR CONSULTATION: Multiple subcutaneous abscesses with history of IV drug abuse. HISTORY OF PRESENT ILLNESS: Mr. Montana is a 37-year-old male who comes into the Emergency department today complaining of multiple abscesses. He has a history of IV drug abuse and hepatitis and MRSA. He states he had several areas on his left arm and left hip that developed these subcutaneous abscesses. He states that the ones on his left hip are spontaneous and not associated with IV drug abuse as he mainly injects his arms. He was seen and evaluated in the emergency department. He was admitted for IV antibiotics. Surgical consultation was requested for the abscesses because apparently no one in the ER knew how to drain them. PAST MEDICAL HISTORY: IV drug abuse, MRSA, hepatitis C. PAST SURGICAL HISTORY: Includes previous I and D's. MEDICATIONS: No prescribed medications except for occasionally antibiotics for these abscesses. ALLERGIES: HE HAS NO KNOWN DRUG ALLERGIES. SOCIAL HISTORY: He smokes, drinks and uses IV drugs. He goes in and out of the area. He has been to the emergency department several times for this. REVIEW OF SYSTEMS: The patient reports fever and chills. He reports multiple left-sided abscesses. He denies any nausea or vomiting. He denies any change in bladder or bowel habits. PHYSICAL EXAMINATION: VITAL SIGNS: Temperature 98, pulse 70, blood pressure 130/70, respiratory rate 20. GENERAL: This is a middle-aged, healthy-appearing male, eating his dinner. HEENT: Pupils equal, round and reactive to light. Sclerae are white. Oropharynx is clear and moist. NECK: Supple. No masses. LUNGS: Clear to auscultation bilaterally. HEART: S1, S2. No murmur. ABDOMEN: Soft, nontender. EXTREMITIES: He has 2 abscesses on his left groin in the inguinal region. There is some fluctuance. He also has a healing abscess on his left anterior thigh and on his left lower leg. No adenopathy is noted. On the left forearm, he has 2 small abscesses on the extensor surface. These appear to be superficial. Patient has good range of motion in the left upper extremity. No adenopathy noted in the left axilla. LABORATORY DATA: White blood cell count 8, hemoglobin 13, and platelet count of 315. Electrolytes are all within normal limits. IMPRESSION: Multiple subcutaneous abscesses with history of methicillin-resistant Staphylococcus aureus and intravenous drug abuse. PLAN: I advised the patient he needed to go the operating room for formal I and D. Unfortunately, the patient is currently being fed dinner, so this will not happen this evening. We will schedule it for tomorrow. We will keep him n.p.o. after midnight. Recommended against continuous IV drug abuse. The patient expressed understanding. We will plan formal I and D in the operating room tomorrow due to the fact he has multiple abscesses and this would be challenging to be performed at the bedside. Efrain MD MARY Lombardo/SURESH , 07:10 PM , 07:27 PM
[2018-01-21] MEDS: VANCOMYCIN INJ 1,250 MG in SODIUM CHLOR 0.9% 250 ML INJ 250 ML IV SCH (19:31)
[2018-01-21 19:54] VITALS: BP 120/70; PULSE 84; RESP 18; TEMP 98.2; O2SAT 98
[2018-01-21] MEDS ORDERED: VANCOMYCIN INJ 1,000 MG in SODIUM CHLOR 0.9% 250 ML INJ 250 ML IV SCH (21:00)
[2018-01-21] MEDS: SODIUM CHLORIDE 0.9% FLUSH 10 ML FLUSH IV FLUSH SCH (21:00)
[2018-01-22] MEDS: HEPARIN SODIUM - SQ 10,000 UNITS/ML VIAL SQ SCH ×2 (02:25→14:00)
[2018-01-22 03:13] VITALS: BP 118/58; PULSE 82; RESP 18; TEMP 98.8; O2SAT 98
[2018-01-22] MEDS: VANCOMYCIN INJ 1,250 MG in SODIUM CHLOR 0.9% 250 ML INJ 250 ML IV SCH ×3 (03:13→11:08)
[2018-01-22] MEDS ORDERED: POVIDONE IODINE 5% (ANTISEPSIS KIT) 4 APPLICATIONS EACH NARE PRN (03:30)
[2018-01-22] MEDS ORDERED: CHLORHEXIDINE GLUCONATE 2 % 1 PACK (2 CLOTHS) TOPICAL PRN (03:30)
[2018-01-22] MEDS ORDERED: LACTATED RINGER'S 1000 ML IV PRN (03:30)
[2018-01-22] MEDS ORDERED: INSULIN HUMAN REGULAR 1,000 UNITS/10 ML VIAL SQ PRN (03:30)
[2018-01-22] MEDS ORDERED: SODIUM CHLORID 0.9% 500 ML IV PRN (03:30)
[2018-01-22] MEDS ORDERED: METOPROLOL TARTRATE 25 MG TAB PO PRN (03:30)
[2018-01-22] MEDS: LORazepam 1 MG TAB PO PRN ×3 (04:23→18:24)
[2018-01-22 05:42] LABS: AUTOMATED NEUTROPHIL # 5.5 TH/MM3 (1.8-7.7); BASOPHIL % 0.4 % (0.0-2.0); EOSINOPHIL # 0.1 TH/MM3 (0-0.4); EOSINOPHIL % 0.6 % (0.0-4.0); HEMATOCRIT 35.4 % (39.0-51.0); HEMOGLOBIN 11.9 GM/DL (13.0-17.0); LYMPH % 22.8 % (9.0-44.0); LYMPHOCYTE # 1.9 TH/MM3 (1.0-4.8); MEAN CELL VOLUME 83.5 FL (80.0-100.0); MEAN CORPUSCULAR HGB CONC 33.5 % (32.0-36.0); MEAN PLATELET VOLUME 7.9 FL (7.0-11.0); MONO % 10.3 % (0.0-8.0); MONOCYTE # 0.9 TH/MM3 (0-0.9); NEUT % 65.9 % (16.0-70.0); PLATELET COUNT 311 TH/MM3 (150-450); RED BLOOD COUNT 4.24 MIL/MM3 (4.50-5.90); RED CELL DISTRIBUTION WIDTH 14.4 % (11.6-17.2); WHITE BLOOD COUNT 8.4 TH/MM3 (4.0-11.0)
[2018-01-22 05:49] LABS: AST (GOT) 136 U/L (15-37); BICARBONATE 26.9 MEQ/L (21.0-32.0); BLOOD UREA NITROGEN 8 MG/DL (7-18); CALCIUM 8.2 MG/DL (8.5-10.1); CHLORIDE 106 MEQ/L (98-107); CREATININE 0.59 MG/DL (0.60-1.30); GLOMERULAR FILTRATION RATE 155 ML/MIN (>89); GLUCOSE,RANDOM 93 MG/DL (74-106); SODIUM (NA) 139 MEQ/L (136-145)
[2018-01-22 05:52] LABS: ALKALINE PHOSPHATASE 50 U/L (45-117); ALT (GPT) 83 U/L (12-78); TOTAL BILIRUBIN ADULT 0.5 MG/DL (0.2-1.0); TOTAL PROTEIN 6.4 GM/DL (6.4-8.2)
[2018-01-22 07:18] VITALS: BP 136/61; PULSE 86; RESP 18; TEMP 97.8; O2SAT 98
[2018-01-22] MEDS: SODIUM CHLORIDE 0.9% FLUSH 10 ML FLUSH IV FLUSH SCH ×2 (09:00→20:12)
[2018-01-22] MEDS ORDERED: KETAMINE HCL 500 MG/10 ML VIAL ONE (10:28)
[2018-01-22] MEDS ORDERED: BACITRACIN TOP OINT 15 GM TUBE ONE (11:17)
[2018-01-22] MEDS ORDERED: SUGAMMADEX SODIUM 200 MG/2 ML VIAL IV PUSH ONE (11:20)
[2018-01-22] MEDS ORDERED: DO NOT ADM ANY ANTICOAGULANT DRUGS PRN (11:40)
[2018-01-22] MEDS ORDERED: MIDAZOLAM HCL 2 MG/2 ML VIAL ONE (11:45)
[2018-01-22 11:55] VITALS: PULSE 73
--- NOTE | 2018-01-22 11:57 | TN ---
cc: Efrain Leong MD DATE OF SURGERY: 01/22/2018 PREOPERATIVE DIAGNOSIS: Multiple subcutaneous abscesses, left forearm, left hip and left leg. POSTOPERATIVE DIAGNOSIS: Multiple subcutaneous abscesses, left forearm, left hip and left leg. PROCEDURE PERFORMED: 1. Incision and drainage, left forearm abscess, 2 cm. 2. I and D of old wound, left forearm, 1 x 3 cm. 3. I and D subcutaneous abscess, left lower abdomen, 3 cm. 4. I and D, left groin abscess, 2 cm. 5. I and D, left leg lateral abscess, 2 cm. 6. I and D, left lateral lower leg abscess, 1 cm. SURGEON: Efrain Leong MD ANESTHESIA: General endotracheal. COMPLICATIONS: None. INDICATIONS FOR PROCEDURE: Mr. Montana is an unfortunate 37-year-old gentleman who presented to the ER with multiple subcutaneous abscesses on his left arm and left lower abdomen, groin and left leg. He was seen in the ER. Apparently, no one in the ER was able to drain the abscesses and therefore the patient was admitted for IV vancomycin and infectious disease consult and a general surgery consult. The patient was seen and evaluated last night. Unfortunately, he was eating dinner when I saw him, so I scheduled the surgery for today. Because of the multiple abscesses, I recommend we do this in the operating room and the patient was agreeable. DETAILS OF PROCEDURE: The patient was identified, brought to the operating room, placed supine on the operating table. After adequate general endotracheal anesthesia was achieved, the left arm and left lower abdomen and left thigh were prepped and draped in standard surgical fashion. A 0.25% Marcaine was injected in skin and subcutaneous tissue around all abscesses. First, attention was directed to the extensive abscess in the left forearm, which was about 2 cm. Elliptical skin incision was used to excise overlying skin and fat. A small amount of pus came out. Most of this was indurated, inflamed tissue. Next, attention was directed to the wound the patient had on the wrist on the flexor side. This appeared to be an old wound, but had what appeared to be infected scab. The infected scab was removed and the wound was debrided sharply and then rinsed out with peroxide and saline. Now, attention was directed to the left lower abdomen and leg. The patient had a large abscess in the left lower abdomen about 3 cm. Elliptical skin incision was made to excise the overlying skin and fat. A small amount of pus came out. Pus was sent for culture. Tissue was sent for culture. Next, in the left groin, a 2 cm abscess was identified. Again, elliptical skin incision was used to excise the overlying skin. A small amount of pus came out. Pus was sent for culture and tissue was sent for culture. Next, attention was directed to the left mid thigh where another small abscess was identified. This was about 2 cm. Again, it was excised in elliptical skin incision. Finally, a small wound in the left lateral leg about a cm was opened with a scalpel as well. All wounds were then anesthetized the second time with local anesthetic. All wounds were then cleansed with peroxide and Q-tips. All wounds were then rinsed out with normal saline solution. All wounds were then covered with antibiotic ointment and a sterile dressing. The patient tolerated the procedure well. He was awakened and brought to the recovery room in stable condition. MD MARY Harvey/VINCE , 11:30 AM , 11:56 AM
[2018-01-22] MEDS ORDERED: GLYCOPYRROLATE 1 MG/5 ML SYRINGE IV PUSH ONE (12:00)
[2018-01-22] MEDS ORDERED: ONDANSETRON HCL 4 MG/2 ML VIAL IV ONE (12:00)
[2018-01-22] MEDS ORDERED: DEXAMETHASONE SOD PHOS 4 MG/ML VIAL IV ONE (12:00)
[2018-01-22] MEDS ORDERED: LIDOCAINE HCL 1% PF 5 ML SYRINGE OTHER ONE (12:00)
[2018-01-22] MEDS ORDERED: PROPOFOL 200 MG/20 ML AMP IV ONE (12:00)
--- NOTE | 2018-01-22 12:59 | HHI.PR ---
Subjective Remarks had I/D of the abscesses earlier today. pain seems to be controlled. no fever. Objective Vitals Vital Signs Date Time Temp Pulse Resp B/P (MAP) Pulse Ox O2 Delivery O2 Flow Rate FiO2 01/22/18 12:00 97.7 84 14 121/75 (90) 100 Room Air 01/22/18 11:55 73 01/22/18 11:45 85 14 126/72 (90) 100 Room Air 01/22/18 11:40 97.7 87 14 130/72 (91) 100 Nasal Cannula 2 01/22/18 07:18 97.8 86 18 136/61 (86) 98 01/22/18 03:13 98.8 82 18 118/58 (78) 98 01/21/18 19:54 98.2 84 18 120/70 (87) 98 01/21/18 14:34 99.1 84 16 130/76 (94) 99 01/21/18 14:32 I/O 01/21/18 01/21/18 01/21/18 01/22/18 01/22/18 01/22/18 07:00 15:00 23:00 07:00 15:00 23:00 Intake Total 360 ml 810 ml Output Total 5 ml Balance 360 ml 805 ml Intake Oral 360 ml 10 ml IV Total 800 ml Output Estimated Blood Loss 5 ml # Voids 2 1 Result Diagram: 01/22/18 0459 01/22/18 0459 Imaging Last Impressions Chest X-Ray 01/21/18 0840 Signed Impressions: Service Date/Time: Sunday, January 21, 2018 08:48 - CONCLUSION: No acute disease. Carlos Ventura MD Objective Remarks GENERAL: This is a well-nourished, well-developed patient, in no apparent distress. CARDIOVASCULAR: Regular rate and regular rhythm without murmurs, gallops, or rubs. RESPIRATORY: Clear to auscultation. Breath sounds equal bilaterally. No wheezes , rales, or rhonchi. GASTROINTESTINAL: Abdomen soft, non-tender, nondistended. Normal, active bowel sounds MUSCULOSKELETAL: Extremities without clubbing, cyanosis, or edema. NEURO: Alert & Oriented x4 to person, place, time, situation. Moves all ext x4 skin; left forearm and groin covered with clean dressing. Procedures 1. Incision and drainage, left forearm abscess, 2 cm. 2. I and D of old wound, left forearm, 1 x 3 cm. 3. I and D subcutaneous abscess, left lower abdomen, 3 cm. 4. I and D, left groin abscess, 2 cm. 5. I and D, left leg lateral abscess, 2 cm. 6. I and D, left lateral lower leg abscess, 1 cm. Medications and IVs Inpatient Medications Acetaminophen (Tylenol) 650 mg Q4H PRN PO TEMP > 100.4; Start 01/21/18 at 13:00 Acetaminophen/ Hydrocodone Bitart ([place] 7.5-325 Mg) 2 tab Q6H PRN PO PAIN SCALE 1 TO 5; Start 01/22/18 at 11:30 Bisacodyl (Dulcolax Supp) 10 mg DAILY PRN RECTAL SEVERE CONSITIPATION; Start at 13:00 Ceftriaxone Sodium 1000 mg/ Sodium Chloride 100 ml @ 200 mls/hr Q12H IV Last administered on 01/21/18at 18:40; Start 01/21/18 at 17:00; Stop 01/22/18 at 01:56 ; Status DC Chlorhexidine Gluconate (Chlorhexidine 2% Cloth) 3 pack CONSUMER INSIGHTS INTERN PRN TOPICAL SEE LABEL COMMENTS; Start 01/22/18 at 03:30; Stop 01/25/18 at 03:29 Heparin Sodium (Porcine) (Heparin Inj) 5,000 units Q12H SQ Last administered on 01/22/18at 02:25; Start 01/21/18 at 14:00 Insulin Human Regular (NovoLIN R INJ) See Protocol Table ... CONSUMER INSIGHTS INTERN PRN SQ SEE PROTOCOL TABLE; Start 01/22/18 at 03:30; Stop 01/25/18 at 03:29 Lactated Ringer's 1,000 ml @ 30 mls/hr Q24H PRN IV SEE LABEL COMMENTS; Start at 03:30; Stop 01/25/18 at 03:29 Lactulose (Lactulose Liq) 30 ml DAILY PRN PO SEVERE CONSITIPATION; Start at 13:00 Lorazepam (Ativan) 1 mg Q6H PRN PO ANXIETY Last administered on 01/22/18at 12:41 ; Start 01/21/18 at 14:45 Magnesium Hydroxide (Milk Of Magnesia Liq) 30 ml Q12H PRN PO Mild constipation ; Start 01/21/18 at 13:00 Metoprolol Tartrate (Lopressor) 25 mg CONSUMER INSIGHTS INTERN PRN PO SEE LABEL COMMENTS; Start 01/22/18 at 03:30; Stop 01/25/18 at 03:29 Miscellaneous Information ALL NURSING DEPARTME... UNSCH PRN .XX SEE LABEL COMMENTS; Start 01/22/18 at 11:40; Stop 01/23/18 at 11:39 Morphine Sulfate (Morphine Inj) 4 mg Q3H PRN IV PUSH PAIN SCALE 6 TO 10; Start 01/22/18 at 11:30 Naloxone HCl (Narcan Inj) 0.4 mg UNSCH PRN IV PUSH SEE LABEL COMMENTS; Start at 13:00 Ondansetron HCl (Zofran Inj) 4 mg Q6H PRN IVP NAUSEA OR VOMITING; Start at 13:00 Pharmacy Profile Note 0 ml @ 0 mls/hr UNSCH OTHER ; Start 01/21/18 at 15:45 Povidone Iodine (Betadine 5% Antisepsis Kit) 1 applic CONSUMER INSIGHTS INTERN PRN EACH NARE SEE LABEL COMMENTS; Start 01/22/18 at 03:30; Stop 01/25/18 at 03:29 Sennosides (Senokot) 17.2 mg Q12H PRN PO Moderate constipation; Start 01/21/18 at 13:00 Sodium Chloride 500 ml @ 30 mls/hr [id number] PRN IV SEE LABEL COMMENTS; Start at 03:30; Stop 01/25/18 at 03:29 Sodium Chloride (NS Flush) 2 ml BID IV FLUSH ; Start 01/21/18 at 21:00 Vancomycin HCl 1000 mg/Sodium Chloride 250 ml @ 250 mls/hr ONCE STAT IV Last administered on 01/21/18at 09:03; Start 01/21/18 at 08:40; Stop 01/21/18 at 09:49 ; Status DC Vancomycin HCl 1250 mg/Sodium Chloride 262.5 ml @ 250 mls/hr Q8H IV Last administered on 01/22/18at 11:08; Start 01/21/18 at 18:00 A/P Assessment and Plan Extensive cellulitis and pustules/small abscess involving arm, legs, groin: - s/p I/D by general surgery -continue IV antibiotics and follow the cultures. -ID following. Anxiety/Early withdrawal: - Ativan PRN. Elevated LFTs: - Check hepatitis panel. Discharge Planning awaiting cultures/ ID recommendations. Lorena Quezada MD Jan 22, 2018 12:59
[2018-01-22 15:14] VITALS: BP 109/54; PULSE 106; TEMP 98.5; O2SAT 98
[2018-01-22] MEDS: MORPHINE SULFATE 4 MG/ML INJ IV PUSH PRN ×3 (16:51→23:56)
[2018-01-22 20:12] VITALS: BP 129/89
[2018-01-22 23:58] VITALS: BP 109/65; PULSE 81; RESP 15; TEMP 97.8; O2SAT 99
[2018-01-23] VITALS (8 sets, daily range): BP systolic 100–121; BP diastolic 54–64; PULSE 72–90; RESP 15–18; TEMP 97.4–98; O2SAT 98–99
[2018-01-23] MEDS ORDERED: PHARMACY ORDERED LAB ONE (01:45)
[2018-01-23] MEDS: VANCOMYCIN INJ 1,250 MG in SODIUM CHLOR 0.9% 250 ML INJ 250 ML IV SCH ×2 (03:06→09:44)
[2018-01-23] MEDS: HEPARIN SODIUM - SQ 10,000 UNITS/ML VIAL SQ SCH ×2 (03:06→18:13)
[2018-01-23] MEDS: MORPHINE SULFATE 4 MG/ML INJ IV PUSH PRN ×3 (06:48→20:40)
[2018-01-23] MEDS: ACETAMINOPHEN/HYDROcodone 325 MG/7.5 MG TAB PO PRN ×2 (09:45→16:30)
[2018-01-23] MEDS: SODIUM CHLORIDE 0.9% FLUSH 10 ML FLUSH IV FLUSH SCH (09:45)
[2018-01-23 09:54] LABS: CREATININE 0.63 MG/DL (0.60-1.30)
--- NOTE | 2018-01-23 11:19 | HHI.PR ---
Subjective Remarks in no acute distress. pain is controlled. no fever. Objective Vitals Vital Signs Date Time Temp Pulse Resp B/P (MAP) Pulse Ox O2 Delivery O2 Flow Rate FiO2 01/23/18 07:45 97.5 72 16 100/54 (69) 99 01/23/18 06:07 97.7 82 15 121/64 (83) 99 01/23/18 03:18 73 01/22/18 23:58 97.8 81 15 109/65 (80) 99 01/22/18 20:20 19 01/22/18 20:12 129/89 (102) 01/22/18 15:14 98.5 106 109/54 (72) 98 01/22/18 12:00 97.7 84 14 121/75 (90) 100 Room Air 01/22/18 11:55 73 01/22/18 11:45 85 14 126/72 (90) 100 Room Air 01/22/18 11:40 97.7 87 14 130/72 (91) 100 Nasal Cannula 2 I/O 01/22/18 01/22/18 01/22/18 01/23/18 01/23/18 01/23/18 07:00 15:00 23:00 07:00 15:00 23:00 Intake Total 810 ml Output Total 5 ml Balance 805 ml Intake Oral 10 ml IV Total 800 ml Output Estimated Blood Loss 5 ml # Voids 1 1 Result Diagram: 01/22/18 0459 01/23/18 0836 Imaging Last Impressions Chest X-Ray 01/21/18 0840 Signed Impressions: Service Date/Time: Sunday, January 21, 2018 08:48 - CONCLUSION: No acute disease. Carlos Ventura MD Objective Remarks GENERAL: This is a well-nourished, well-developed patient, in no apparent distress. CARDIOVASCULAR: Regular rate and regular rhythm without murmurs, gallops, or rubs. RESPIRATORY: Clear to auscultation. Breath sounds equal bilaterally. No wheezes , rales, or rhonchi. GASTROINTESTINAL: Abdomen soft, non-tender, nondistended. Normal, active bowel sounds MUSCULOSKELETAL: Extremities without clubbing, cyanosis, or edema. NEURO: Alert & Oriented x4 to person, place, time, situation. Moves all ext x4 skin; left forearm and groin covered with clean dressing. Procedures 1. Incision and drainage, left forearm abscess, 2 cm. 2. I and D of old wound, left forearm, 1 x 3 cm. 3. I and D subcutaneous abscess, left lower abdomen, 3 cm. 4. I and D, left groin abscess, 2 cm. 5. I and D, left leg lateral abscess, 2 cm. 6. I and D, left lateral lower leg abscess, 1 cm. Medications and IVs Inpatient Medications Acetaminophen (Tylenol) 650 mg Q4H PRN PO TEMP > 100.4; Start 01/21/18 at 13:00 Acetaminophen/ Hydrocodone Bitart ([place] 7.5-325 Mg) 2 tab Q6H PRN PO PAIN SCALE 1 TO 5 Last administered on 01/23/18at 09:45; Start 01/22/18 at 11:30 Bisacodyl (Dulcolax Supp) 10 mg DAILY PRN RECTAL SEVERE CONSITIPATION; Start at 13:00 Ceftriaxone Sodium 1000 mg/ Sodium Chloride 100 ml @ 200 mls/hr Q12H IV Last administered on 01/21/18at 18:40; Start 01/21/18 at 17:00; Stop 01/22/18 at 01:56 ; Status DC Chlorhexidine Gluconate (Chlorhexidine 2% Cloth) 3 pack MATCH MARKER PRN TOPICAL SEE LABEL COMMENTS; Start 01/22/18 at 03:30; Stop 01/25/18 at 03:29 Heparin Sodium (Porcine) (Heparin Inj) 5,000 units Q12H SQ Last administered on 01/23/18at 03:06; Start 01/21/18 at 14:00 Insulin Human Regular (NovoLIN R INJ) See Protocol Table ... MATCH MARKER PRN SQ SEE PROTOCOL TABLE; Start 01/22/18 at 03:30; Stop 01/25/18 at 03:29 Lactated Ringer's 1,000 ml @ 30 mls/hr Q24H PRN IV SEE LABEL COMMENTS; Start at 03:30; Stop 01/25/18 at 03:29 Lactulose (Lactulose Liq) 30 ml DAILY PRN PO SEVERE CONSITIPATION; Start at 13:00 Lorazepam (Ativan) 1 mg Q6H PRN PO ANXIETY Last administered on 01/22/18at 18:24 ; Start 01/21/18 at 14:45 Magnesium Hydroxide (Milk Of Magnesia Liq) 30 ml Q12H PRN PO Mild constipation ; Start 01/21/18 at 13:00 Metoprolol Tartrate (Lopressor) 25 mg MATCH MARKER PRN PO SEE LABEL COMMENTS; Start 01/22/18 at 03:30; Stop 01/25/18 at 03:29 Miscellaneous Information SPECIFIC LAB TO BE DRAWN:VANCOMYCIN TROUGH DATE TO... ONCE ONCE .XX ; Start 01/25/18 at 07:45; Stop 01/25/18 at 07:46 Morphine Sulfate (Morphine Inj) 4 mg Q3H PRN IV PUSH PAIN SCALE 6 TO 10 Last administered on 01/23/18at 06:48; Start 01/22/18 at 11:30 Naloxone HCl (Narcan Inj) 0.4 mg UNSCH PRN IV PUSH SEE LABEL COMMENTS; Start at 13:00 Ondansetron HCl (Zofran Inj) 4 mg Q6H PRN IVP NAUSEA OR VOMITING; Start at 13:00 Pharmacy Profile Note 0 ml @ 0 mls/hr UNSCH OTHER ; Start 01/21/18 at 15:45 Povidone Iodine (Betadine 5% Antisepsis Kit) 1 applic MATCH MARKER PRN EACH NARE SEE LABEL COMMENTS; Start 01/22/18 at 03:30; Stop 01/25/18 at 03:29 Sennosides (Senokot) 17.2 mg Q12H PRN PO Moderate constipation; Start 01/21/18 at 13:00 Sodium Chloride 500 ml @ 30 mls/hr [id number] PRN IV SEE LABEL COMMENTS; Start at 03:30; Stop 01/25/18 at 03:29 Sodium Chloride (NS Flush) 2 ml BID IV FLUSH Last administered on 01/23/18at 09: 45; Start 01/21/18 at 21:00 Vancomycin HCl 1000 mg/Sodium Chloride 250 ml @ 250 mls/hr ONCE STAT IV Last administered on 01/21/18at 09:03; Start 01/21/18 at 08:40; Stop 01/21/18 at 09:49 ; Status DC Vancomycin HCl 1250 mg/Sodium Chloride 262.5 ml @ 250 mls/hr Q8H IV Last administered on 01/23/18at 09:44; Start 01/21/18 at 18:00; Stop 01/23/18 at 10:05 ; Status DC Vancomycin HCl 1500 mg/Sodium Chloride 515 ml @ 250 mls/hr Q8H IV ; Start 01/23 at 16:00 A/P Assessment and Plan Extensive cellulitis and pustules/small abscess involving arm, legs, groin: - s/p I/D by general surgery -continue IV antibiotics and follow the cultures. -ID following. -d/w the surgery today and cleared for discharge by general surgery. Anxiety/Early withdrawal: - Ativan PRN. Elevated LFTs- due to hepatitis C- f/u as outpatient ( patient is aware and [facility]). Discharge Planning dc home when cleared by ID. Lorena Quezada MD Jan 23, 2018 11:19
--- NOTE | 2018-01-23 11:31 | HHI.PR ---
cc: Efrain Leong MD Subjective Subjective Notes Resting in bed No issues Objective Vitals/I&O Vital Signs Date Time Temp Pulse Resp B/P (MAP) Pulse Ox O2 Delivery O2 Flow Rate FiO2 01/23/18 11:26 97.4 73 18 115/63 (80) 98 01/22/18 12:00 Room Air 01/22/18 11:40 2 Labs Laboratory Tests Test 01/22/18 14:40 01/23/18 03:05 01/23/18 08:36 Hepatitis A IgM Antibody NONREACTIVE Hepatitis B Surface Antigen NONREACTIVE Hepatitis B Core IgM Antibody NONREACTIVE Hepatitis C IgG Antibody REACTIVE Vancomycin Level Trough 2.7 Creatinine 0.63 Estimat Glomerular Filtration Rate 144 Date/Time Source Procedure Growth Status 01/21/18 09:05 Blood Peripheral Aerobic Blood Culture - Preliminary NO GROWTH IN 2 DAYS Resulted 01/21/18 09:05 Blood Peripheral Anaerobic Blood Culture - Preliminary NO GROWTH IN 2 DAYS Resulted 01/22/18 11:15 Wound Other Fungal Smear - Final NO FUNGAL ELEMENTS SEEN. Resulted 01/22/18 11:15 Wound Other Fungal Culture Pending Resulted Cardiovascular: Regular Lungs: Clear Abdomen: Non-distended, Non-tender Narrative Exam multiple areas with dressings in place A/P Assessment and Plan 37 year old male POD1 I&D multiple superficial abscesses -Dressing change by RN -Regular diet -Antibiotics per ID -General Surgery will sign off Angelina Nguyen/[employer] COOK SAUCE Jan 23, 2018 11:31
[2018-01-23] MEDS: VANCOMYCIN INJ 1,500 MG in SODIUM CHLORID 0.9% 500 ML INJ 500 ML IV SCH (16:32)
[2018-01-24] VITALS (7 sets, daily range): BP systolic 109–117; BP diastolic 62–71; PULSE 53–71; RESP 16–20; TEMP 97.3–98.3; O2SAT 97–99
[2018-01-24] MEDS: MORPHINE SULFATE 4 MG/ML INJ IV PUSH PRN ×2 (00:17→08:24)
[2018-01-24] MEDS: SODIUM CHLORIDE 0.9% FLUSH 10 ML FLUSH IV FLUSH SCH ×2 (00:19→09:00)
[2018-01-24] MEDS: VANCOMYCIN INJ 1,500 MG in SODIUM CHLORID 0.9% 500 ML INJ 500 ML IV SCH ×2 (00:19→08:23)
[2018-01-24] MEDS: HEPARIN SODIUM - SQ 10,000 UNITS/ML VIAL SQ SCH ×2 (02:47→14:00)
[2018-01-24] MEDS: ACETAMINOPHEN/HYDROcodone 325 MG/7.5 MG TAB PO PRN ×2 (03:50→12:52)
[2018-01-24 09:09] LABS: CREATININE 0.7 MG/DL (0.60-1.30)
--- NOTE | 2018-01-24 10:11 | HHI.PR ---
Subjective Remarks Follow up for multiple abscesses with MRSA s/p I&Ds. The patient has no acute complaints. Pain controlled. Denies fevers/chills. Objective Vitals Vital Signs Date Time Temp Pulse Resp B/P (MAP) Pulse Ox O2 Delivery O2 Flow Rate FiO2 01/24/18 07:30 98.3 53 18 111/68 (82) 98 01/24/18 04:09 59 01/24/18 03:17 97.9 71 16 109/62 (78) 98 01/24/18 00:29 97.3 62 18 117/62 (80) 97 01/24/18 00:15 59 01/23/18 22:23 82 01/23/18 21:28 98.0 78 16 107/59 (75) 99 01/23/18 15:11 97.8 75 18 112/64 (80) 99 01/23/18 11:26 97.4 73 18 115/63 (80) 98 I/O 01/23/18 01/23/18 01/23/18 01/24/18 01/24/18 01/24/18 07:00 15:00 23:00 07:00 15:00 23:00 Intake Total 750 ml Balance 750 ml Intake Oral 750 ml # Voids 1 2 Result Diagram: 01/22/18 0459 01/24/18 0753 Imaging Last Impressions Chest X-Ray 01/21/18 0840 Signed Impressions: Service Date/Time: Sunday, January 21, 2018 08:48 - CONCLUSION: No acute disease. Carlos Ventura MD Objective Remarks GENERAL: Well-developed well-nourished male in [facility]. Sleeping upon my arrival, easily awakens. SKIN: Warm and dry. Multiple superficial abscesses s/p I&D throughout left forearm, left lower abdomen and groin, left leg. HEENT: Atraumatic. Normocephalic. Pupils equal and round. Mucous membranes pink and moist. CARDIOVASCULAR: Regular rate and rhythm. No murmur appreciated. RESPIRATORY: No accessory muscle use. Clear to auscultation. Breath sounds equal bilaterally. GASTROINTESTINAL: Abdomen soft, non-tender, nondistended. MUSCULOSKELETAL: Extremities without clubbing, cyanosis, or edema. No obvious deformities. NEUROLOGICAL: Awake and alert. No obvious cranial nerve deficits. Motor grossly within normal limits. Normal speech. PSYCHIATRIC: Appropriate mood and affect; insight and judgment normal. Procedures 1. Incision and drainage, left forearm abscess, 2 cm. 2. I and D of old wound, left forearm, 1 x 3 cm. 3. I and D subcutaneous abscess, left lower abdomen, 3 cm. 4. I and D, left groin abscess, 2 cm. 5. I and D, left leg lateral abscess, 2 cm. 6. I and D, left lateral lower leg abscess, 1 cm. Medications and IVs Current Medications Medications (Trade) Dose Ordered Sig/Marielos Route Start Time Stop Time Status Last Admin (NS Flush) 2 ml UNSCH PRN IV FLUSH 01/21/18 13:00 (NS Flush) 2 ml BID IV FLUSH 01/21/18 21:00 01/24/18 00:19 (Tylenol) 650 mg Q4H PRN PO 01/21/18 13:00 (Zofran Inj) 4 mg Q6H PRN IVP 01/21/18 13:00 (Heparin Inj) 5,000 units Q12H SQ 01/21/18 14:00 01/24/18 02:47 (Narcan Inj) 0.4 mg UNSCH PRN IV PUSH 01/21/18 13:00 (Milk Of Magnesia Liq) 30 ml Q12H PRN PO 01/21/18 13:00 (Senokot) 17.2 mg Q12H PRN PO 01/21/18 13:00 (Dulcolax Supp) 10 mg DAILY PRN RECTAL 01/21/18 13:00 (Lactulose Liq) 30 ml DAILY PRN PO 01/21/18 13:00 (Ativan) 1 mg Q6H PRN PO 01/21/18 14:45 01/22/18 18:24 Pharmacy Profile Note 0 ml @ 0 mls/hr UNSCH OTHER 01/21/18 15:45 Lactated Ringer's 1,000 ml @ 30 mls/hr Q24H PRN IV 01/22/18 03:30 01/25/18 03:29 Sodium Chloride 500 ml @ 30 mls/hr [id number] PRN IV 01/22/18 03:30 01/25/18 03:29 (Lopressor) 25 mg TELETYPE ADJUSTER PRN PO 01/22/18 03:30 01/25/18 03:29 (Betadine 5% Antisepsis Kit) 1 applic TELETYPE ADJUSTER PRN EACH NARE 01/22/18 03:30 01/25/18 03:29 (Chlorhexidine 2% Cloth) 3 pack TELETYPE ADJUSTER PRN TOPICAL 01/22/18 03:30 01/25/18 03:29 (NovoLIN R INJ) See Protocol Table ... TELETYPE ADJUSTER PRN SQ 01/22/18 03:30 01/25/18 03:29 (Morphine Inj) 4 mg Q3H PRN IV PUSH 01/22/18 11:30 01/24/18 08:24 ([place] 7.5-325 Mg) 2 tab Q6H PRN PO 01/22/18 11:30 01/24/18 03:50 Vancomycin HCl 1500 mg/Sodium Chloride 515 ml @ 250 mls/hr Q8H IV 01/23/18 16:00 01/24/18 08:23 Miscellaneous Information SPECIFIC LAB TO BE DRAWN:VANCOMYCIN TROUGH DATE TO... ONCE ONCE .XX 01/25/18 07:45 01/25/18 07:46 A/P Assessment and Plan 37 Y/O male with with history of IVDU, multiple MRSA skin infection presented to the emergency room with multiple skin infections that started about 5 days ago. Extensive cellulitis and pustules/small abscess involving arm, legs, groin: failed outpatient, previously seen in ER 01/19, given prescription for abx, returned with worsening symptoms. - s/p I/D by general surgery on 01/22 -continue IV antibiotics with Vancomycin -wound cultures +MRSA -general surgery cleared for discharge -ID following, await final antibiotic recommendations Anxiety/Early withdrawal: - Ativan PRN. Elevated LFTs- due to hepatitis C -f/u as outpatient (patient is aware of diagnosis and [facility] DVT Prophylaxis: early ambulation Discharge Planning Will get recommendations from ID for oral antibiotics and likely discharge today. 1245hrs: Dr. Quezada discussed with Dr. Diana, recommended bactrim x1week. Ok to d/c from ID standpoint. Will discharge home. See discharge summary. Wendy Magallon PA-C Jan 24, 2018 10:11 am
--- NOTE | 2018-01-24 12:00 | HHI.DS ---
Discharge Summary Admission Date Jan 21, 2018 at 15:32 Discharge Date: Jan 24, 2018 Admitting Diagnosis IV drug use/cellulitis/MRSA (1) Left arm cellulitis ICD Code: L03.114 - Cellulitis of left upper limb Diagnosis: Principal Status: Acute Procedures 1. Incision and drainage, left forearm abscess, 2 cm. 2. I and D of old wound, left forearm, 1 x 3 cm. 3. I and D subcutaneous abscess, left lower abdomen, 3 cm. 4. I and D, left groin abscess, 2 cm. 5. I and D, left leg lateral abscess, 2 cm. 6. I and D, left lateral lower leg abscess, 1 cm. Brief History - From Admission 37 Y/O male with with history of IVDU, multiple MRSA skin infection presented to the emergency room with multiple skin infections that started about 5 days ago. The patient was seen in the emergency room a couple of days ago and was prescribed antibiotics. He is a current Methamphetamine user. He notes the lesions involve his arm and legs. Has been getting worse over the past couple of days. Become pustules and enlarging in size. He denies fevers. He reports feeling very anxious currently CBC/BMP: 01/22/18 0459 01/24/18 0753 Significant Findings Laboratory Tests Test 01/22/18 04:59 01/22/18 14:40 01/23/18 03:05 01/23/18 08:36 Red Blood Count 4.24 MIL/MM3 (4.50-5.90) Hemoglobin 11.9 GM/DL (13.0-17.0) Hematocrit 35.4 % (39.0-51.0) Monocytes (%) (Auto) 10.3 % (0.0-8.0) Creatinine 0.59 MG/DL (0.60-1.30) Albumin 3.0 GM/DL (3.4-5.0) Calcium Level 8.2 MG/DL (8.5-10.1) Aspartate Amino Transf (AST/SGOT) 136 U/L (15-37) Alanine Aminotransferase (ALT/SGPT) 83 U/L (12-78) Hepatitis C IgG Antibody REACTIVE (NONREACTIVE) Vancomycin Level Trough 2.7 MCG/ML (5.0-10.0) Test 01/24/18 07:53 Imaging Last Impressions Chest X-Ray 01/21/18 0840 Signed Impressions: Service Date/Time: Sunday, January 21, 2018 08:48 - CONCLUSION: No acute disease. Carlos Ventura MD PE at Discharge GENERAL: Well-developed well-nourished male in [place]. Sleeping upon my arrival, easily awakens. SKIN: Warm and dry. Multiple superficial abscesses s/p I&D throughout left forearm, left lower abdomen and groin, left leg. HEENT: Atraumatic. Normocephalic. Pupils equal and round. Mucous membranes pink and moist. CARDIOVASCULAR: Regular rate and rhythm. No murmur appreciated. RESPIRATORY: No accessory muscle use. Clear to auscultation. Breath sounds equal bilaterally. GASTROINTESTINAL: Abdomen soft, non-tender, nondistended. MUSCULOSKELETAL: Extremities without clubbing, cyanosis, or edema. No obvious deformities. NEUROLOGICAL: Awake and alert. No obvious cranial nerve deficits. Motor grossly within normal limits. Normal speech. PSYCHIATRIC: Appropriate mood and affect; insight and judgment normal. Hospital Course Extensive cellulitis and pustules/small abscess involving arm, legs, groin: failed outpatient, previously seen in ER 01/19, given prescription for abx, returned with worsening symptoms. - s/p I/D by general surgery on 01/22 -continue IV antibiotics with Vancomycin -wound cultures +MRSA -general surgery cleared for discharge -ID following, await final antibiotic recommendations Anxiety/Early withdrawal: - Ativan PRN. Elevated LFTs- due to hepatitis C -f/u as outpatient (patient is aware of diagnosis and [facility]). Pt Condition on Discharge: Stable Discharge Disposition: Discharge Home Discharge Time: <= 30 minutes Lorena Quezada MD Jan 24, 2018 12:00
[2018-01-24] MEDS ORDERED: BACT800T5 PO (12:39)
[2018-01-24] MEDS ORDERED: MUPI1OIN TOPICAL (12:48)
[2018-01-24] MEDS ORDERED: MUPIROCIN 2% OINT 22 GM TUBE TOPICAL SCH (13:00)
[2018-01-25] MEDS ORDERED: PHARMACY ORDERED LAB ONE (07:45)
== END 2018-01-24 14:51 | disposition home or self-care (01) | DRG 603 ==
LOC: NEPE 08:19 → NEDA 12:50 → NEPFCDU 14:26 → OBSVTOIN 15:32
PROVIDERS: ADMIT Internal Medicine; ATTEND Internal Medicine
PROC: 0J9H3ZZ Drainage of Left Lower Arm Subcutaneous Tissue and Fascia, Percutaneous Approach (ICD-10-PCS; 2018-01-22)
PROC: 0J9P3ZZ Drainage of Left Lower Leg Subcutaneous Tissue and Fascia, Percutaneous Approach (ICD-10-PCS; 2018-01-22)
PROC: 0J9M3ZZ Drainage of Left Upper Leg Subcutaneous Tissue and Fascia, Percutaneous Approach (ICD-10-PCS; 2018-01-22)
PROC: 0J983ZZ Drainage of Abdomen Subcutaneous Tissue and Fascia, Percutaneous Approach (ICD-10-PCS; 2018-01-22)
PROC: 0J9C3ZZ Drainage of Pelvic Region Subcutaneous Tissue and Fascia, Percutaneous Approach (ICD-10-PCS; principal; 2018-01-22 10:46)
DX: L03.114 Cellulitis of left upper limb (principal); L02.211 Cutaneous abscess of abdominal wall; L02.416 Cutaneous abscess of left lower limb; L02.214 Cutaneous abscess of groin; L02.414 Cutaneous abscess of left upper limb; B95.62 Methicillin resistant Staphylococcus aureus infection as the cause of diseases classified elsewhere; B19.20 Unspecified viral hepatitis C without hepatic coma; F41.9 Anxiety disorder, unspecified; R21 Rash and other nonspecific skin eruption; F17.210 Nicotine dependence, cigarettes, uncomplicated; F19.10 Other psychoactive substance abuse, uncomplicated; I34.0 Nonrheumatic mitral (valve) insufficiency; R59.1 Generalized enlarged lymph nodes; Z86.14 Personal history of Methicillin resistant Staphylococcus aureus infection
CPT/HCPCS: 71045; 80053; 80074; 80076; 80202; 82565; 83605; 85025; 86403; 87015; 87040; 87070; 87102; 87116; 87147; 87176; 87186; 87205; 87206; 96365; J0696; J1100; J1644; J2250; J2270; J2405; J3010; J3370; J7040; J7050

== ENCOUNTER 2018-03-29 14:19 | Emergency (ER) | payer OTHER ==
[~2018-03-29] VITALS: Ht 180.3 cm; Wt 75.0 kg
[~2018-03-29 14:19] MED LIST changes: +MUPI1OIN TOPICAL; -MUPI2OIN TOPICAL
[2018-03-29 14:28] VITALS: BP 101/51; PULSE 83; RESP 16; TEMP 99.2; O2SAT 99
[2018-03-29] MEDS ORDERED: IBUP1TAB7 PO (16:05)
[2018-03-29] MEDS ORDERED: BACT800T5 PO (16:05)
[2018-03-29] MEDS ORDERED: CLINDAMYCIN PHOS 600 MG/4 ML VIAL IM ONE (16:15)
[2018-03-29] MEDS ORDERED: KETOROLAC TROMETHAMINE 60 MG/2 ML (IM) VIAL IM ONE (16:15)
--- NOTE | 2018-03-29 16:21 | PD ---
HPI Chief Complaint: Bite or Sting Time Seen by Provider: 16:00 Travel History International Travel<30 days: No Contact w/Intl Traveler<30days: No Traveled to known affect area: No History of Present Illness HPI 37-year-old male with history of MRSA presents emergency department with painful possible insect bite to the right lateral knee with localized induration, warmth, erythema, and swelling. Patient states he thinks he got bit last evening and then went to bed but this morning his knee was much more swollen and painful. He has erythema extending skilled nursing down the lateral vuong. Pain is 7 out of 10. It has worsened since this morning. Patient has no known drug allergies. PFSH Past Medical History Blood Disorders: No Anxiety: Yes Depression: No Heart Rhythm Problems: No Cancer: No High Cholesterol: No Chest Pain: No Congestive Heart Failure: No Diabetes: No Endocrine: No Gastrointestinal Disorders: No Genitourinary: No Hypertension: No Immune Disorder: No Implanted Vascular Access Dvce: No Musculoskeletal: No Neurologic: No Psychiatric: No Reproductive: No Thyroid Disease: No ?: Not Past Surgical History Other Surgery: No Social History Alcohol Use: No Tobacco Use: Yes (/2 PPD) Substance Use: Yes (PT STATED "LAST USED 3 DAYS AGO") Allergies-Medications (Allergen,Severity, Reaction): Coded Allergies: No Known Allergies (Unverified , 01/21/18) Reported Meds & Prescriptions Reported Meds & Active Scripts Active Ibuprofen 800 Mg Tab 800 Mg PO Q8H PRN Bactrim DS (Sulfamethoxazole-Trimethoprim) 800-160 Mg Tab 1 Tab PO BID Mupirocin 2 % Oin.pf.surekha 1 Applic TOPICAL DAILY Bactrim DS (Sulfamethoxazole-Trimethoprim) 800-160 Mg Tab 1 Tab PO BID Review of Systems Except as stated in HPI: all other systems reviewed are Neg General / Constitutional: No: Fever Eyes: No: Visual changes HENT: No: Headaches Cardiovascular: No: Chest Pain or Discomfort Respiratory: No: Shortness of Breath Gastrointestinal: No: Abdominal Pain Genitourinary: No: Dysuria Musculoskeletal: No: Pain Skin: Positive Lesions, No Rash Neurologic: No: Weakness Psychiatric: No: Depression Endocrine: No: Polydipsia Hematologic/Lymphatic: No: Easy Bruising Physical Exam Narrative GENERAL: Patient appears in mild to moderate distress SKIN: Warm and dry. Normal color. Normal turgor. Patient has what appears to be an insect bite to the right lateral anterior tibial plateau. There is increased warmth, erythema, tenderness, without obvious signs of deep abscess or pointing HEAD: Atraumatic. Normocephalic. EYES: Pupils equal and round. No scleral icterus. No injection or drainage. ENT: No nasal bleeding or discharge. Mucous membranes pink and moist. NECK: Trachea midline. No JVD. Supple. CARDIOVASCULAR: Regular rate and rhythm. RESPIRATORY: No accessory muscle use. Clear to auscultation. Breath sounds equal bilaterally. MUSCULOSKELETAL: Extremities without clubbing, cyanosis, or edema. No obvious deformities. Range of motion and strength is full throughout NEUROLOGICAL: Awake and alert. No obvious cranial nerve deficits. Motor grossly within normal limits. Five out of 5 muscle strength in the arms and legs. Normal speech. PSYCHIATRIC: Appropriate mood and affect; insight and judgment normal. Data Data Last Documented VS Vital Signs Date Time Temp Pulse Resp B/P (MAP) Pulse Ox O2 Delivery O2 Flow Rate FiO2 03/29/18 14:28 99.2 83 16 101/51 (68) 99 Orders Orders Clindamycin Inj (Cleocin Inj) (03/29/18 16:15) Ketorolac Inj (Toradol Inj) (03/29/18 16:15) [facility] Medical Decision Making Medical Screen Exam Complete: Yes Emergency Medical Condition: Yes Differential Diagnosis Insect bite. Cellulitis. MRSA Narrative Course Patient is given clindamycin 600 mg IM. Patient is given Toradol 60 mg IM Patient continued on Bactrim DS twice daily for 7 days. Patient is given ibuprofen 800 mg 3 times daily with food as needed pain #60 Patient is to keep off the area, use hot compresses frequently. Follow-up if symptoms do not improve in the next 2 days. Work note is given. Diagnosis Primary Impression: Insect bite, infected Qualified Codes: W57.XXXA - Bitten or stung by nonvenomous insect and other nonvenomous arthropods, initial encounter Additional Impression: MRSA cellulitis Patient Instructions: General Instructions, MRSA (Methicillin-Resistant Staphylococcus Aureus) (ED) Departure Forms: Work Release Enter return to work date: Mar 31, 2018 Additional Instructions: Patient is given clindamycin 600 mg IM. Patient is given Toradol 60 mg IM Patient continued on Bactrim DS twice daily for 7 days. Patient is given ibuprofen 800 mg 3 times daily with food as needed pain #60 Patient is to keep off the area, use hot compresses frequently. Follow-up if symptoms do not improve in the next 2 days. Work note is given. Med/Other Pt SpecificInfo: Prescription(s) given Scripts Ibuprofen (Ibuprofen) 800 Mg Tab 800 MG PO Q8H Y for Pain/Inflammation, #60 TAB 0 Refills Prov: Ashley Solorzano MD 03/29/18 Sulfamethoxazole-Trimethoprim (Bactrim DS) 800-160 Mg Tab 1 TAB PO BID for Infection, #14 TAB 0 Refills Prov: Ashley Solorzano MD 03/29/18 Disposition: 01 DISCHARGE HOME Condition: Stable [place] Mar 29, 2018 16:21
[2018-03-29 17:19] VITALS: RESP 18
[2018-03-29 17:20] VITALS: BP 114/56
== END 2018-03-29 17:20 | disposition home or self-care (01) ==
LOC: NEPD 14:19
DX: S80.861A Insect bite (nonvenomous), right lower leg, initial encounter (principal); L03.90 Cellulitis, unspecified; B95.62 Methicillin resistant Staphylococcus aureus infection as the cause of diseases classified elsewhere; W57.XXXA Bitten or stung by nonvenomous insect and other nonvenomous arthropods, initial encounter
CPT/HCPCS: 96372; 99283; J1885